=== PATIENT | male | born 1945 | race Hispanic/Latino ===

== ENCOUNTER 2017-09-21 12:56 | Inpatient (IN) | payer MEDICARE, OTHER ==
[~2017-09-21] VITALS: Ht 172.7 cm; Wt 52.4 kg
[~2017-09-21 12:56] MED LIST: ALBUTEROL0.63 MG/3 NEB; ALENDRONATE SOD35 MG PO; ATENOLOL25 MG PO; BACLOFEN20 MG PO; CELEBREX200 MG PO; CITALOPRAM HBR10 MG PO; CLARITIN10 M2 PO; CLOPIDOGREL75 MG PO; COMBIVENT RESPIM4 GM INH; CYCLOBENZAPRINE10 MG PO; DALIRESP500 MCG PO; FENOFIBRATE145 MG PO; FLOMAX0.4 MG PO; FLUCONAZOLE100 MG PO; HYDROCODON-ACE1 EAC5 PO; LEVAQUIN500 MG PO; LISINOPRIL20 MG PO; LUNESTA3 MG PO; MEDROL2 MG PO; MELOXICAM15 MG PO; METAXALONE800 MG PO; NEXIUM40 MG PO; NORVASC5 MG PO; OMEPRAZOLE20 M1 PO; OPANA ER10 MG PO; OPANA ER20 MG PO; PRAVACHOL40 MG PO; PROAIR HFA INH8.5 GM INH; SENNA LAX8.6 MG PO; SERTRALINE HCL50 MG PO; SPIRIVA18 MCG INH; SULFAMETHOXAZO1 EAC1 PO; SUMATRIPTAN SUC25 MG PO; SYMBICORT 16010.2 GM; TAMSULOSIN HCL0.4 MG PO; TESSALON PERLE100 MG PO; VESICARE5 MG PO; WARFARIN SODIUM3 MG PO
--- OUTSIDE RECORDS SUMMARY | 2017-09-21 13:00 | XMS REPORT | Clinical Summary ---
Author Author [facility] Organization [facility] Address Unknown Phone Unavailable Care Team Providers Care Sand Shoveler Name Role Phone Asked, Pcp PCP Unavailable Allergies Not on File Current Medications Not on file Active Problems Not on file Encounters Date Type Specialty Care Team Description 03/30/2017 Lab Lab Vital, Ever Polo MD 03/04/2017 Lab Lab Vital, Ever Polo MD after 09/20/2016 Social History Tobacco Use Types Packs/Day Years Used Date Never Assessed Sex Assigned at Date Recorded Not on file Last Filed Vital Signs Not on file Plan of Treatment Health Maintenance Due Date Last Done Comments COLONOSCOPY 08/15/1995 ZOSTER VACCINE 08/15/2005 PNEUMOCOCCAL 08/15/2010 POLYSACCHARIDE VACCINE AGE 65 AND OVER PNEUMOCOCCAL-13 08/15/2010 INFLUENZA VACCINE 03/09/2017 Results * Eye culture, anaerobic (03/30/2017 4:00 PM) Only the most recent of 2 results within the time period is included. Component Value Ref Range Eye culture isolate, Thioglycollate broth: anaerobic No anaerobes isolated after 7 days. Comment: Specimen Information Specimen Source: [facility]nea Specimen Site: Left Eye Specimen Performing Laboratory [facility] DEPARTMENT OF PATHOLOGY AND GENOMIC MEDICINE [address] [place] [id number] * Eye culture (03/30/2017 4:00 PM) Only the most recent of 2 results within the time period is included. Component Value Ref Range Eye culture isolate Blood and Chocolate agars and Thioglycollate broth: Blood agar: (A) Comment: Specimen Information Specimen Source: Cornea Specimen Site: Left Eye Eye culture isolate Staphylococcus, coagulase negative 1+ Growth first detected on Chocolate/Thioglycollate on day 2 Growth first detected on Blood agar on day 6 Interpretations of the MECCA values are based on serum and urine levels. Interpret results accordingly. Interpretations of the MECCA values are based on serum and urine levels. Interpret results accordingly. (A) Specimen Performing Laboratory Cor[facility] DEPARTMENT OF PATHOLOGY AND GENOMIC MEDICINE [address] [place] [id number] Organism Antibiotic Method Susceptibility Staphylococcus coagulase Ampicillin BP 0.38 mcg/mL negative Staphylococcus coagulase Erythromycin BP 1.0 mcg/mL: Resistant negative Staphylococcus coagulase Oxacillin BP 0.25 mcg/mL: Susceptible negative Staphylococcus coagulase Penicillin G BP 0.25 mcg/mL: Resistant negative Staphylococcus coagulase Vancomycin BP 1.5 mcg/mL: Susceptible negative Staphylococcus coagulase Azithromycin BP 6 mcg/mL: Resistant negative Staphylococcus coagulase Ciprofloxacin BP 0.19 mcg/mL: Susceptible negative Staphylococcus coagulase Ofloxacin BP 0.50 mcg/mL: Susceptible negative Staphylococcus coagulase Tobramycin BP 0.094 mcg/mL: Susceptible negative * Fungus culture (03/30/2017 4:00 PM) Only the most recent of 2 results within the time period is included. Component Value Ref Range Fungus culture isolate No growth after 4 weeks of incubation. Comment: Specimen Information Specimen Source: Cornea Specimen Site: Left Eye Specimen Performing Laboratory [facility] DEPARTMENT OF PATHOLOGY AND GENOMIC MEDICINE [address] [place] [phone] after 09/20/2016 Insurance Payer Benefit Subscriber ID Type Phone Address Plan / Group MEDICARE MEDICARE xxxxxxxxxx Medicare [place], [place] PART A AND B MEDICAID MEDICAID xxxxxxxxx Medicaid Home:
[2017-09-21] MEDS ORDERED: SODIUM CHLORIDE 0.9% 1000ML 1,000 ML IV STA (13:19)
[2017-09-21] MEDS ORDERED: ALBUTEROL SULF 0.083% NEB SOLN 3 ML NEB NEB ONE (14:00)
[2017-09-21] MEDS ORDERED: METHYLPREDNISOLONE SOD SUCC 125 MG/2ML VIAL IV ONE (14:00)
[2017-09-21] MEDS ORDERED: ALBUTEROL/IPRATROPIUM 3 ML NEB NEB ONE (14:00)
[2017-09-21] MEDS: IPRATROPIUM BROMIDE 0.02% 2.5 ML NEB NEB SCH ×2 (14:00→19:00)
[2017-09-21 14:02] LABS: BASOPHILS % 0.3 % (0.0-1.0); EOSINOPHILS % 0.6 % (0.0-6.0); HEMATOCRIT 43.1 % (38.2-49.6); HEMOGLOBIN 13.7 g/dL (14.0-18.0); LYMPHOCYTES # (AUTO) 1.3 (1.0-3.2); LYMPHOCYTES % 18.4 % (18.0-39.1); MEAN CORPUSCULAR HEMOGLOBIN 26.2 pg (28-32); MEAN CORPUSCULAR HGB CONC 31.8 g/dL (31-35); MEAN CORPUSCULAR VOLUME 82.4 fL (81-99); MONOCYTES # (AUTO) 0.3 (0.2-0.8); MONOCYTES % 4.1 % (4.4-11.3); NEUTROPHILS # (AUTO) 5.3 (2.1-6.9); NEUTROPHILS % 76.3 % (38.7-80.0); PLATELET COUNT 272 x10e3/uL (140-360); RED BLOOD COUNT 5.23 x10e6/uL (4.3-5.7); RED CELL DISTRIBUTION WIDTH 16.8 % (11.7-14.4)
[2017-09-21 14:05] LABS: ABG PCO2 34 mmHg (41-51); ABG PH 7.38 (7.31-7.41); ABG PO2 80 mmHg (80-105)
[2017-09-21 14:06] LABS: ABG HCO3 20 mmol/L (23-28)
[2017-09-21 14:11] LABS: INR 1.22; PROTHROMBIN TIME 14.5 seconds (11.9-14.5)
[2017-09-21 14:12] LABS: PARTIAL THROMBOPLASTIN TIME 31.6 seconds (23.8-35.5)
[2017-09-21 14:22] LABS: ALBUMIN 4.1 g/dL (3.5-5.0); ANION GAP 15.7 mmol/L (8-16); CALCIUM 9.2 mg/dL (8.4-10.2); CREATININE, SERUM 1.19 mg/dL (0.72-1.25); POTASSIUM 4.7 mmol/L (3.5-5.1)
[2017-09-21 14:28] LABS: CREATINE KINASE MB 9.9 ng/mL (0.00-5.00)
--- NOTE | 2017-09-21 15:24 | Diagnostic Imaging Report ---
PROCEDURE: A single AP view of the chest. COMPARISON: Patients [facility], , CHEST SINGLE (NOT PORTABLE), 01/17/2017, 16:21. INDICATIONS: SHORTNESS OF BREATH FINDINGS: Lines/tubes: None. Lungs: The lungs are hyperinflated, likely reflecting COPD. No consolidation or pulmonary edema. Pleura: Slight blunting of the right lateral costophrenic sulcus. Heart and mediastinum: Cardiac silhouette is unremarkable. Pulmonary vasculature is normal. Bones: No acute bony abnormality. IMPRESSION: 1. COPD changes. No consolidation. 2. Blunting of the right lateral costophrenic sulcus may reflect pleural thickening versus small volume pleural effusion. Kd Ma M.D. Dictated by: Kd Ma M.D. on 09/21/2017 at 15:34 Electronically approved by: Kd Ma M.D. on 09/21/2017 at 15:34
[2017-09-21 15:38] LABS: LYMPHOCYTES % (MANUAL) 18 % (19-48); MONOCYTES % (MANUAL) 2 % (3.4-9.0); NEUTROPHILS % (MANUAL) 80 % (40-74)
[2017-09-21 15:39] LABS: PLATELET ESTIMATE ADEQUATE; PLATELET MORPHOLOGY COMMENT FEW LARGE; RBC MORPHOLOGY COMMENT NORMAL
[2017-09-21] MEDS ORDERED: SODIUM CHLORIDE 0.9% 1000ML 1,000 ML IV SCH (17:01)
[2017-09-21] MEDS: ALBUTEROL SULF 0.083% NEB SOLN 3 ML NEB NEB SCH ×2 (17:11→19:00)
[2017-09-21] MEDS ORDERED: AZITHROMYCIN 500MG/SOD CHL 0.9% 250ML BAG IV SCH (17:15)
[2017-09-21] MEDS: NICOTINE 21 MG/EA PATCH TOP SCH (17:43)
[2017-09-21] MEDS: AZITHROMYCIN 500MG/NS 250 ML 250 ML IV SCH (17:44)
--- OUTSIDE RECORDS SUMMARY | 2017-09-21 18:03 | XMS REPORT | Clinical Summary ---
Author Author [facility] Organization [facility] Address Unknown Phone Unavailable Care Team Providers Care Ambulance Dispatcher Name Role Phone Asked, Pcp PCP Unavailable [...] Site: Left Eye Specimen Performing Laboratory [facility] DEPARTMENT OF PATHOLOGY AND GENOMIC MEDICINE [address] [place] [phone] * Eye culture (03/30/2017 4:00 PM) Only [...] results accordingly. (A) Specimen Performing Laboratory [facility] DEPARTMENT OF PATHOLOGY AND GENOMIC MEDICINE [address] [place] [phone] Organism Antibiotic Method Susceptibility Staphylococcus coagulase Ampicillin [...] Site: Left Eye Specimen Performing Laboratory [facility] DEPARTMENT OF PATHOLOGY AND GENOMIC MEDICINE [address] [place] [phone] after 09/20/2016 Insurance Payer Benefit Subscriber ID Type Phone Address Plan / Group MEDICARE MEDICARE xxxxxxxxxx Medicare [place], [place] PART A AND B MEDICAID MEDICAID xxxxxxxxx Medicaid Home:
--- OUTSIDE RECORDS SUMMARY | 2017-09-21 18:03 | XMS REPORT ---
Author Author [facility] Address Unknown Phone Unavailable Care Team Providers Care Physical Therapy Nurse Name Role Phone SUZAN GU Unavailable Unavailable Problems This patient has no known problems. Allergies, Adverse Reactions, Alerts This patient has no known allergies or adverse reactions. Medications This patient has no known medications. Results Test Description Test Time Test Comments Text Results Atomic Results Result Comments CHEST SINGLE (PORTABLE) [facility] [address] [place] [address] Patient Name: NITA PRATT MR #: [id number] : 1945 Age/Sex: 72/M Req #: [id number] Adm Physician: Ordered by: SUZAN GU MD Report #: [id number] Location: ER Room/Bed: Procedure: [id number] DX/CHEST SINGLE (PORTABLE) Exam Date: 09/21/17 Exam Time: 1400 REPORT STATUS: Signed PROCEDURE: A single AP view of the chest. COMPARISON: [facility], , CHEST SINGLE (NOT PORTABLE), 01/17/2017, 16:21. INDICATIONS: SHORTNESS OF BREATH FINDINGS: Lines/tubes: None. Lungs: The lungs are hyperinflated, likely reflecting COPD. No consolidation or pulmonary edema. Pleura: Slight blunting of the right lateral costophrenic sulcus. Heart and mediastinum: Cardiac silhouette is unremarkable. Pulmonary vasculature is normal. Bones: No acute bony abnormality. IMPRESSION: 1. COPD changes. No consolidation. 2. Blunting of the right lateral costophrenic sulcus may reflect pleural thickening versus small volume pleural effusion. Luci Pritchard M.D. Dictated by: Luci Pritchard M.D. on 09/21/2017 at 15:34 Electronically approved by: Luci Pritchard M.D. on 09/21/2017 at 15:34 Dictated By: LUCI PRITCHARD MD [id number] Transcribed By: DANUTA on 09/21/17 1534 COPY TO: SUZAN GU MD
[2017-09-21 18:41] VITALS: BP 147/75
--- NOTE | 2017-09-21 19:59 | Consultation ---
DATE OF CONSULTATION: September 21, 2017 PULMONARY MEDICINE CONSULTATION patient's algebra tutor, Dr. Benitez. REASON FOR REFERRAL: COPD exacerbation. HISTORY: Ms. Menendez is a pleasant 72-year-old gentleman with COPD exacerbation. Patient with worsening shortness of breath over 6 weeks he says. Slightly worse over the last week. He denies fever. Denies myalgias. Denies arthralgias. No new cough. There is some increased nasal congestion. Patient with condition improved with rest and worsened by movement. He is now walking about 2 rooms. Exercise tolerance at baseline. Prior pulmonary medicines include Advair 115 mcg inhaler, Combivent. Patient is on 3 L per minute of home oxygen. PAST MEDICAL HISTORY: COPD, long-term hypoxemia, chronic hypoxemia, hyperlipidemia, hypertension. MEDICATIONS: REVIEWED PER ELECTRONIC RECORD. ALLERGIES: IODINE AND CONTRAST ORAL AND IV DYE HE SAYS. SOCIAL HISTORY: No active alcohol, although he formerly drank heavily for 20 years. No drugs. Patient smoked from age 16 to active at 72, 1-1/2 packs a day. He denies any regular smoking of a pack a day. FAMILY HISTORY: Noncontributory. REVIEW OF SYSTEMS GENERAL: No weight change. OPHTHALMOLOGIC: No double vision. ENT: No dry mouth. ENDOCRINE: No thyroid disease. PULMONARY: No asthma. IMMUNOLOGIC: Denies allergies. CARDIAC: No heart attack. GI: No constipation. : No blood in the urine. MUSCULOSKELETAL: Arthritis. DERMATOLOGIC: No rashes. NEUROLOGIC: No seizures. PHYSICAL EXAMINATION VITALS: Afebrile. Vital signs noted per electronic record. GENERAL: In no acute distress. Alert and calm. HEENT: Normocephalic and atraumatic. NECK: Supple. Throat midline. LUNGS: Bilateral air entry is mild to moderate, decreased overall. Few rhonchi. No wheezes heard by me. CARDIOVASCULAR: S1 and S2. No murmurs, rubs or gallops. ABDOMEN: Soft and nontender. EXTREMITIES: No clubbing. No cyanosis. There is no edema. INTEGUMENT: No rash. No purpura. LABS: White count 7, hematocrit 43 and platelets 217,000. 7.38/34/80/20. Potassium 4.7, BUN 36, creatinine 1.2. CK is 194. Albumin is 4.1, globulin is 4.1. BNP is 22. Chest x-ray with mostly clear lungs. Possible mild scarring. IMPRESSION AND PLAN 1. Chronic obstructive pulmonary disease with exacerbation. 2. Suggestive recent upper respiratory infection. 3. Chronic respiratory failure, hypoxemic. 4. History of increasing debility and weakness. 5. Hypertension. 6. Hyperlipidemia. Continue home oxygen and continue oxygen while here in the hospital. Patient will continue on steroids that were already initiated. Bronchodilators. Smoking cessation highly recommended. Continue some IV fluids will be okay, although the patient does not seem that he is grossly volume depleted. No aggressive fluids will be given. Continue antibiotics. Thank you very much for this consult. Job#: [id number] AIDAN [facility]
[2017-09-21 20:00] VITALS: BP 131/58
[2017-09-22] VITALS: BP 142/71
[2017-09-22] MEDS: IPRATROPIUM BROMIDE 0.02% 2.5 ML NEB NEB SCH ×5 (00:10→20:25)
[2017-09-22] MEDS: METHYLPREDNISOLONE SOD SUCC 40 MG/ML VIAL IV SCH ×3 (00:20→17:00)
[2017-09-22] MEDS: ALBUTEROL SULF 0.083% NEB SOLN 3 ML NEB NEB SCH ×6 (00:30→22:00)
[2017-09-22 05:00] VITALS: BP 146/97
--- NOTE | 2017-09-22 06:03 | Diagnostic Imaging Report ---
CHEST SINGLE (PORTABLE), 09/22/2017 5:00 AM Technique: CHEST SINGLE (PORTABLE) Comparison: 01/17/2017 Clinical history: Pneumonia Findings: See Impression Impression: 1. Stable cardiomediastinal silhouette. 2. Hyperinflation without consolidation. 3. No effusion or pneumothorax. Signed by: Dr Francine Bear MD on 09/22/2017 6:00 AM
[2017-09-22 07:19] LABS: BASOPHILS % 0.2 % (0.0-1.0); HEMATOCRIT 37.2 % (38.2-49.6); HEMOGLOBIN 11.7 g/dL (14.0-18.0); LYMPHOCYTES # (AUTO) 0.6 (1.0-3.2); LYMPHOCYTES % 12.8 % (18.0-39.1); MEAN CORPUSCULAR HEMOGLOBIN 25.9 pg (28-32); MEAN CORPUSCULAR HGB CONC 31.5 g/dL (31-35); MEAN CORPUSCULAR VOLUME 82.3 fL (81-99); MONOCYTES # (AUTO) 0.1 (0.2-0.8); MONOCYTES % 1.3 % (4.4-11.3); NEUTROPHILS # (AUTO) 3.9 (2.1-6.9); NEUTROPHILS % 85.3 % (38.7-80.0); PLATELET COUNT 195 x10e3/uL (140-360); RED BLOOD COUNT 4.52 x10e6/uL (4.3-5.7); RED CELL DISTRIBUTION WIDTH 16.5 % (11.7-14.4)
[2017-09-22 07:46] LABS: ANION GAP 13.9 mmol/L (8-16); BLOOD UREA NITROGEN 19 mg/dL (7-26); BUN/CREATININE RATIO 24 (6-25); CALCIUM 8.6 mg/dL (8.4-10.2); CARBON DIOXIDE 20 mmol/L (22-29); CHLORIDE 107 mmol/L (98-107); CREATININE, SERUM 0.78 mg/dL (0.72-1.25); EST GLOMERULAR FILTRATION RATE > 60 ML/MIN (60-); GLUCOSE 127 mg/dL (74-118); POTASSIUM 4.9 mmol/L (3.5-5.1); SODIUM 136 mmol/L (136-145)
--- NOTE | 2017-09-22 07:55 | Consultation ---
DATE OF CONSULTATION: September 22, 2017 HISTORY: This is a 72-year-old who presented to the hospital because of problems with COPD exacerbation. He apparently complains of gagging all the time. He does have some abdominal discomfort and his workup so far reveal that his CBC was okay and his chemistry was also okay. His influenza is negative. OTHER MEDICAL PROBLEMS: Significant for COPD, history of chronic hypoxemia, hyperlipidemia, hypertension. ALLERGIES: IODINE AND ORAL CONTRAST. CURRENT MEDICATIONS: Include Atrovent, Solu-Medrol, azithromycin. SOCIAL HISTORY: No alcohol abuse. FAMILY HISTORY: Noncontributory. REVIEW OF SYSTEMS: At this point, denies any chest pain. Breathing is better. Denies any dysphagia or odynophagia. Denies any dysuria, hematuria or any kind of syncopal episode. PHYSICAL EXAMINATION GENERAL: The patient is awake, alert, appears to be stable and not in any acute distress at this point. VITAL SIGNS: Afebrile currently with stable vital signs. HEAD, EYES, EARS, NOSE, THROAT: Normocephalic, atraumatic. Sclerae anicteric. NECK: Supple. HEART: Sounds regular. LUNGS: Clear. ABDOMEN: Soft. There is mild epigastric tenderness. There is no rebound or mass. EXTREMITIES: No edema or clubbing. LAB VALUES: CBC is okay. Chemistry is okay. PT and INR are okay IMPRESSION 1. Chronic obstructive pulmonary disease exacerbation. 2. Abdominal pain. Patient has some problems with gagging. 3. History of chronic hypertension. RECOMMENDATIONS: Continue current care at this point. Will proceed with EGD for further evaluation tomorrow if it is okay with pulmonary. Job#: [id number] GE cc:DELMAR CANNON MD
[2017-09-22 08:15] VITALS: BP 153/72
[2017-09-22 11:48] VITALS: BP 155/67
--- NOTE | 2017-09-22 13:21 | History and Physical ---
HISTORY OF PRESENT ILLNESS: Patient came here with shortness of breath. He is feeling better today. He was found to have COPD exacerbation, and also he was found to have dysphagia. REVIEW OF SYSTEMS CARDIOVASCULAR: No chest pain or palpitations. RESPIRATORY: He did have shortness of breath. He is better right now. He also complains of cough. GASTROINTESTINAL: No nausea, no vomiting, no diarrhea. GENITOURINARY: No frequency, no dysuria. ALLERGIES: HE CLAIMS THAT HE IS ALLERGIC TO IODINE. SOCIAL HISTORY: He used to be a smoker. He does not smoke any more. He does not drink alcohol. PAST MEDICAL HISTORY: COPD, hypertension, peripheral vascular disease, hypercholesterolemia, benign prostatic hypertrophy and chronic pain syndrome. MEDICATION LIST: He is right now on albuterol and Atrovent, Zithromax, IV fluids, NicoDerm patch, budesonide, diuretic, prednisolone. PHYSICAL EXAMINATION VITALS: Blood pressure 155/67, temperature 97.4, heart rate 104 per minute. Respiratory rate is 16 per minute. Oxygen saturation 93%. HEART: Regular rhythm. Normal S1, S2 sounds. LUNGS: Decreased breath sounds bilaterally. No wheezing, no rhonchi, no crackles, no rales. ABDOMEN: Soft, nontender, nondistended, no visceromegaly. EXTREMITIES: No evidence of cyanosis, edema or trauma. NECK: No evidence of any thyromegaly or lymphadenopathy. LABORATORY DATA: On the blood work we have BMP with a sodium 136, potassium 4.9, chloride 107, CO2 20, BUN 19, creatinine 0.78, glucose 127. On the CBC, white blood count 4.62, hemoglobin 11.7, hematocrit 37.2, platelet count 185,000. PT 14.5. PTT 31.6. INR 1.22. AST 34, ALT 19, total bilirubin 0.7, alkaline phosphatase 85. Chest x-ray shows COPD. FINAL IMPRESSION 1. Chronic obstructive pulmonary disease exacerbation. 2. Uncontrolled hypertension. 3. Peripheral vascular disease. 4. Hypercholesterolemia. 5. Benign prostatic hypertrophy. 6. Chronic pain syndrome. 7. Nasal obstruction. PLAN OF TREATMENT: Going to consult Dr. Benitez for pulmonary, Dr. Amor for gastroenterology because of abdominal pain, and also Dr. Figueroa for ears, nose and throat because of complaining of occlusion on the nasal passages. The rest of the medications will be albuterol and Atrovent q.4 h., Zithromax 250 mg IV piggyback once a day, sodium chloride 75 mL an hour, NicoDerm patch 21 mg daily, budesonide 1 inhalation twice a day, methylprednisolone 40 mg IV twice a day. We are going to resume the home medications. Clonidine 0.1 mg q.4 h. as needed for hypertension. Job#: [id number]
[2017-09-22] MEDS ORDERED: IPRATROPIUM BROMIDE 0.02% 2.5 ML NEB NEB SCH (14:00)
[2017-09-22 16:04] VITALS: BP 132/68
[2017-09-22] MEDS: PANTOPRAZOLE SOD 40 MG TABEC PO SCH (17:00)
[2017-09-22] MEDS ORDERED: PANTOPRAZOLE SOD 40 MG TABEC PO SCH (17:00)
[2017-09-22] MEDS: NICOTINE 21 MG/EA PATCH TOP SCH (17:15)
[2017-09-22] MEDS: AZITHROMYCIN 500MG/NS 250 ML 250 ML IV SCH (17:30)
[2017-09-22] MEDS: BUDESONIDE/FORMOTEROL 160/4.5MCG INHALER INH SCH (19:00)
[2017-09-22 20:00] VITALS: BP 128/61
--- NOTE | 2017-09-22 20:08 | Consultation ---
DATE OF CONSULTATION: September 22, 2017 HISTORY OF PRESENT ILLNESS: I was kindly asked to see this pleasant 72-year-old man for evaluation of nasal congestion. The patient was admitted with an exacerbation of his COPD and reports a roughly 4-month history of nasal airway obstruction which alternates from side to side as well as excessive nasal drainage. He uses a humidifier with his home oxygen supply. He reports no seasonal variation with his symptoms. He reports no previous significant history of allergy or rhinosinusitis. He has not been treated for this condition. PAST MEDICAL HISTORY, PAST SURGICAL HISTORY AND HISTORY OF PRESENT ILLNESS: All reviewed in detail in the chart. PHYSICAL EXAMINATION HEENT: The tympanic membranes and external auditory canals were unremarkable. He had a mild S-shaped nasoseptal deviation. There was edema of the nasal mucosa. There was copious clear secretions and thick mucus within the nasal cavity. Pharyngeal examination was unremarkable. There was no palpable cervical adenopathy on fiberoptic diagnostic rhinoscopy. There was no active paranasal sinus pathology, but he had generalized mild edema as well as thick mucus throughout the nasal cavity. ASSESSMENT 1. Nasoseptal deviation. 2. Chronic allergic rhinosinusitis. PLAN: 1. Flonase 2 puffs each side of nose daily. 2. Nasal saline 2 puffs each side of nose q.4 h. while awake. 3. Ipratropium 0.06% 2 puffs each side of nose b.i.d. 4. Addition of humidification to nasal prong oxygen. Job#: [id number]
[2017-09-22] MEDS: SERTRALINE HCL 50 MG TAB PO SCH (20:54)
[2017-09-22] MEDS ORDERED: FENOFIBRATE 145 MG TAB PO SCH (21:00)
[2017-09-22] MEDS ORDERED: SIMVASTATIN 20 MG TAB PO SCH (21:00)
[2017-09-22] MEDS ORDERED: IPRATROPIUM BROMIDE 0.06% 42 MCG NASPR NS SCH (21:00)
[2017-09-22] MEDS: SALINE 0.65% NAS SOLN 1 SPRAY BTL SCH (22:00)
[2017-09-23] VITALS: BP 131/58
[2017-09-23] MEDS: IPRATROPIUM BROMIDE 0.02% 2.5 ML NEB NEB SCH ×6 (03:00→23:15)
[2017-09-23 04:00] VITALS: BP 120/57
[2017-09-23] MEDS: SALINE 0.65% NAS SOLN 1 SPRAY BTL SCH ×4 (05:27→22:00)
[2017-09-23] MEDS: ALBUTEROL SULF 0.083% NEB SOLN 3 ML NEB NEB SCH ×5 (06:00→23:15)
[2017-09-23] MEDS: BUDESONIDE/FORMOTEROL 160/4.5MCG INHALER INH SCH ×2 (07:00→19:25)
[2017-09-23] MEDS: TIOTROPIUM 18 MCG INH POWDER INH SCH (07:30)
[2017-09-23 07:52] VITALS: BP 142/65
[2017-09-23] MEDS: PANTOPRAZOLE SOD 40 MG TABEC PO SCH (08:00)
[2017-09-23] MEDS: FLUTICASONE PROPIONATE NASAL SPRAY NS SCH (09:00)
[2017-09-23] MEDS: AMLODIPINE BESYLATE 5 MG TAB PO SCH (09:00)
[2017-09-23] MEDS: TAMSULOSIN HCL 0.4 MG CAP PO SCH (09:00)
[2017-09-23] MEDS: METHYLPREDNISOLONE SOD SUCC 40 MG/ML VIAL IV SCH (09:00)
[2017-09-23 11:50] VITALS: BP 127/58
[2017-09-23 16:25] VITALS: BP 145/62
[2017-09-23] MEDS: NICOTINE 21 MG/EA PATCH TOP SCH (17:15)
[2017-09-23] MEDS: AZITHROMYCIN 500MG/NS 250 ML 250 ML IV SCH (17:30)
[2017-09-23] MEDS ORDERED: PROPOFOL IV EMULSION 10 MG/ML 20 ML VIAL ONE (18:14)
[2017-09-23] MEDS ORDERED: LIDOCAINE HCL 2% LOCAL INJ 5 ML SDV VIAL INJ ONE (18:14)
[2017-09-23 20:00] VITALS: BP 136/58
[2017-09-23] MEDS: SERTRALINE HCL 50 MG TAB PO SCH (20:31)
[2017-09-23] MEDS: SUCRALFATE 1 GM TAB PO SCH (20:31)
--- NOTE | 2017-09-23 21:21 | Discharge Summary ---
This 72-year-old male with a past medical history positive for COPD, history of coronary artery disease, hypertension and chronic pain syndrome came here complaining of shortness of breath. He was found to have COPD exacerbation. He is doing a lot better right now. Patient is going to be discharged home tomorrow. He was also having difficulty swallowing. He was seen by Dr. Amor of gastroenterology who did an upper endoscopy. He found a hiatal hernia, acute gastric ulcer, and normal small-bowel examination. Dr. Benitez saw him from the pulmonary point of view. He was started on albuterol and Atrovent, Spiriva, IV Solu-Medrol and Zithromax. From a respiratory point of view, he is feeling much better. He is able to swallow without a problem anyway. He is going home tomorrow if okay with the consultants. Dr. Manuel Figueroa saw him from the ears, nose and throat specialist point of view because the patient has trouble breathing through his nose. He is supposed to follow up with him in the clinic. PHYSICAL EXAM: The heart shows regular rhythm. Normal S1 and S2 sounds. Lungs are clear bilaterally. Abdomen is soft. Extremities show no evidence of cyanosis, edema or trauma. Blood pressure 127/58, temperature 98.2, heart rate 114 per minute, respiratory rate 20 per minute, oxygen saturation 96%. LABS: On the BMP, sodium is 133, potassium 4.9, chloride 107, CO2 20, BUN 19, creatinine 0.78, glucose 127. On the CBC, white blood count 4.62, hemoglobin 11.7, hematocrit 37.2, platelet count 185,000. PT 14.5, INR 1.22, PTT 31.6. AST 34, ALT 19, total bilirubin 0.7, alkaline phosphatase of 85. FINAL IMPRESSION 1. Chronic obstructive pulmonary disease exacerbation secondary to acute bronchitis. 2. Gastric ulcer with no evidence of bleeding. 3. Chronic pain syndrome. 4. Depression. PLAN OF TREATMENT: The patient is going to be discharged home on: 1. Protonix 40 mg twice a day. 2. Carafate 1 g before meals. 3. He is going to continue albuterol q.4 h. as needed for shortness of breath. 4. Pulmicort 1 inhalation twice a day. 5. Medrol Dosepak to take as directed. 6. Spiriva 1 inhalation daily. 7. Flomax 0.4 mg daily. 8. Flonase 2 inhalations daily. 9. NicoDerm patch 21 mg q.24 h. and follow instructions on the nicotine pack. He is to follow up with me in a week. Follow up with Dr. Manuel Figueroa in a week. Follow up with Dr. Amor for endoscopy in 3 months. DELMAR CANNON MD Job#: [id number]
[2017-09-24] VITALS: BP 156/67
[2017-09-24] MEDS: IPRATROPIUM BROMIDE 0.02% 2.5 ML NEB NEB SCH ×2 (02:30→07:28)
[2017-09-24] MEDS ORDERED: ACETAMINOPHEN 325 MG TAB PO PRN (03:00)
[2017-09-24 05:05] VITALS: BP 142/72
[2017-09-24] MEDS: SALINE 0.65% NAS SOLN 1 SPRAY BTL SCH (05:50)
[2017-09-24] MEDS: ALBUTEROL SULF 0.083% NEB SOLN 3 ML NEB NEB SCH (07:28)
[2017-09-24] MEDS: TIOTROPIUM 18 MCG INH POWDER INH SCH (07:28)
[2017-09-24] MEDS: BUDESONIDE/FORMOTEROL 160/4.5MCG INHALER INH SCH (07:28)
[2017-09-24] MEDS: SUCRALFATE 1 GM TAB PO SCH (07:30)
[2017-09-24] MEDS: PANTOPRAZOLE SOD 40 MG TABEC PO SCH (08:00)
[2017-09-24 08:48] VITALS: BP 163/71
[2017-09-24] MEDS: METHYLPREDNISOLONE SOD SUCC 40 MG/ML VIAL IV SCH (09:00)
[2017-09-24] MEDS: FLUTICASONE PROPIONATE NASAL SPRAY NS SCH (09:00)
[2017-09-24] MEDS: TAMSULOSIN HCL 0.4 MG CAP PO SCH (09:17)
[2017-09-24] MEDS: AMLODIPINE BESYLATE 5 MG TAB PO SCH (09:17)
[2017-09-24] MEDS ORDERED: SUCRALFATE1 GM PO (10:18)
[2017-09-24] MEDS ORDERED: PULMICORT2 ML INH (10:21)
[2017-09-24] MEDS ORDERED: PANTOPRAZOLE SO40 MG PO (10:21)
--- NOTE | 2017-09-24 14:43 | Discharge Summary ---
This is a 72-year-old male with a past medical history positive for severe COPD, history of coronary artery disease, hypertension and chronic pain syndrome. He came to the hospital complaining of shortness of breath. Chest x-ray showed no evidence of any pneumonia or CHF. He has COPD. Patient was started on albuterol and Atrovent and IV antibiotics. He was started on IV Solu-Medrol. He was started on Spiriva. He was started on Pulmicort. Also, he was complaining of difficulty swallowing. He had an EGD done which showed gastric ulcers. More specifically, hiatal hernia and a normal bowel examination and gastric ulcer. EGD with biopsy was done. Also he was complaining also of clogged nostril, so he was seen by Dr. Manuel Figueroa, education research analyst, who put the patient on Flonase. Patient is doing better, back to baseline. He is going home today. PHYSICAL EXAMINATION: Heart shows regular rhythm. Normal S1, S2 sounds. Lungs are clear bilaterally. Abdomen is soft. Extremities show no evidence of cyanosis, edema or trauma. Blood pressure 142/72, temperature 97.8, heart rate 108 minute, respiratory rate is 18 per minute, oxygen saturation 96%. LABS: On the BMP, sodium 136, potassium 4.9, chloride 107, CO2 20, BUN 19, creatinine 0.78, glucose 127. On the CBC, white blood count 4.62, hemoglobin 11.7, hematocrit 37.2, platelet count 185,000. PT 14.5, INR 1.22, PTT 31.6. AST 34, ALT 19, total bilirubin 0.7, alkaline phosphatase 85. FINAL IMPRESSION 1. Chronic obstructive pulmonary disease exacerbation. 2. Gastric ulcers. 3. Chronic pain syndrome. 4. Acute bronchitis. PLAN OF TREATMENT: He is going to be discharged on the same medications that I dictated yesterday on the prior discharge summary. Follow up with myself in a week, Dr. Amor and Dr. Figueroa in a week also. We are going to order home health for PT and OT. We are going to continue oxygen at home. DELMAR CANNON MD Job#: [id number] MH
[2017-09-25] MEDS ORDERED: PREDNISONE 20 MG TAB PO SCH (09:00)
== END 2017-09-24 10:50 | disposition home health service (06) | DRG 191 ==
LOC: ER 12:56 → MED/SURG 18:00 → MED/SURG3 09-22 05:16 → OBSVTOIN 09-22 12:22
PROVIDERS: ADMIT Internal Medicine; ATTEND Internal Medicine
PROC: 0DB38ZX Excision of Lower Esophagus, Via Natural or Artificial Opening Endoscopic, Diagnostic (ICD-10-PCS; 2017-09-23)
PROC: 0DB68ZX Excision of Stomach, Via Natural or Artificial Opening Endoscopic, Diagnostic (ICD-10-PCS; principal; 2017-09-23 13:30)
DX: J44.0 Chronic obstructive pulmonary disease with (acute) lower respiratory infection (principal); J96.11 Chronic respiratory failure with hypoxia; J20.9 Acute bronchitis, unspecified; J44.1 Chronic obstructive pulmonary disease with (acute) exacerbation; G89.4 Chronic pain syndrome; I25.10 Atherosclerotic heart disease of native coronary artery without angina pectoris; K25.9 Gastric ulcer, unspecified as acute or chronic, without hemorrhage or perforation; K44.9 Diaphragmatic hernia without obstruction or gangrene; J32.9 Chronic sinusitis, unspecified; J34.2 Deviated nasal septum; I10 Essential (primary) hypertension; R53.81 Other malaise; F32.9 Major depressive disorder, single episode, unspecified; I73.9 Peripheral vascular disease, unspecified; N40.0 Benign prostatic hyperplasia without lower urinary tract symptoms; J34.89 Other specified disorders of nose and nasal sinuses
CPT/HCPCS: 36415; 36600; 43239; 71045; 80048; 80053; 82550; 82553; 82805; 83880; 84484; 85025; 85610; 85730; 87040; 87400; 88305; 88312; 93005; 94640; 99284; G0378; J0456; J2001; J2920; J2930; J7030

== ENCOUNTER 2018-10-15 10:00 | Inpatient (IN) | payer MEDICARE, OTHER ==
[~2018-10-15] VITALS: Ht 172.7 cm; Wt 60.1 kg
[~2018-10-15 10:00] MED LIST changes: +PANTOPRAZOLE SO40 MG PO; +PULMICORT2 ML INH; +SUCRALFATE1 GM PO
--- OUTSIDE RECORDS SUMMARY | 2018-10-15 10:03 | XMS REPORT | Clinical Summary ---
Author Author [facility] Organization [facility] Address Unknown Phone Unavailable Care Team Providers Care Outpatient Physical Therapist Name Role Phone Asked, No Pcp PCP Unavailable Allergies Not on File Medications Not on file Active Problems Not on file Social History Date Tobacco Use Types Packs/Day Years Used Never Assessed Sex Assigned at Date Recorded Not on file Industry Job Start Date Occupation Not on file Not on file Not on file Travel End Travel History Travel Start No recent travel history available. Last Filed Vital Signs Not on file Plan of Treatment Health Maintenance Due Date Last Done Comments COLON CANCER SCREENING 08/15/1995 SHINGLES VACCINES (#1) 08/15/1995 65+ PNEUMOCOCCAL VACCINE 08/15/2010 (1 of 2 - PCV13) PNEUMOCOCCAL 08/15/2010 POLYSACCHARIDE VACCINE AGE 65 AND OVER INFLUENZA VACCINE 03/09/2018 Results Not on fileafter 10/14/2017 Insurance Payer Benefit Subscriber ID Type Phone Address Plan / Group MEDICARE MEDICARE xxxxxxxxxx Medicare [place], [place] PART A AND B MEDICAID MEDICAID xxxxxxxxx Medicaid amily (Home) [place] [address] Advance Directives Patient has advance care planning documents on file. For more information, evelia eduardo contact: Alan Odell [address] [place] [address]
[2018-10-15] MEDS ORDERED: SODIUM CHLORIDE 0.9% 1000ML 1,000 ML IV STA (10:24)
[2018-10-15] MEDS ORDERED: METHYLPREDNISOLONE SOD SUCC 125 MG/2ML VIAL IV NR (10:24)
[2018-10-15] MEDS ORDERED: LEVALBUTEROL HCL SOLN NEBU 1.25 MG/3 ML NEB INH ONE (10:30)
[2018-10-15] MEDS ORDERED: IPRATROPIUM BROMIDE 0.02% 2.5 ML NEB NEB NR (10:30)
[2018-10-15 10:39] LABS: BASOPHILS % 0.2 % (0.0-1.0); HEMATOCRIT 40.8 % (38.2-49.6); HEMOGLOBIN 12.4 g/dL (14.0-18.0); LYMPHOCYTES # (AUTO) 0.4 (1.0-3.2); LYMPHOCYTES % 6.3 % (18.0-39.1); MEAN CORPUSCULAR HGB CONC 30.4 g/dL (31-35); MEAN CORPUSCULAR VOLUME 85.5 fL (81-99); MONOCYTES # (AUTO) 0.4 (0.2-0.8); MONOCYTES % 6.8 % (4.4-11.3); NEUTROPHILS # (AUTO) 5.6 (2.1-6.9); NEUTROPHILS % 85.9 % (38.7-80.0); PLATELET COUNT 191 x10e3/uL (140-360); RED BLOOD COUNT 4.77 x10e6/uL (4.3-5.7); RED CELL DISTRIBUTION WIDTH 15.9 % (11.7-14.4)
[2018-10-15 10:45] LABS: INR 1.08; PROTHROMBIN TIME 14.5 seconds (11.9-14.5)
[2018-10-15 10:46] LABS: PARTIAL THROMBOPLASTIN TIME 37.8 seconds (23.8-35.5)
[2018-10-15 10:53] LABS: ALANINE AMINOTRANSFERASE 11 IU/L (0-55); ALBUMIN 3.4 g/dL (3.5-5.0); ALBUMIN/GLOBULIN RATIO 0.8 (0.8-2.0); ALKALINE PHOSPHATASE 98 IU/L (40-150); ANION GAP 16.1 mmol/L (8-16); BLOOD UREA NITROGEN 11 mg/dL (7-26); BUN/CREATININE RATIO 13 (6-25); CALCIUM 9.2 mg/dL (8.4-10.2); CARBON DIOXIDE 27 mmol/L (22-29); CHLORIDE 99 mmol/L (98-107); CREATINE KINASE 351 IU/L (30-200); CREATININE, SERUM 0.82 mg/dL (0.72-1.25); EST GLOMERULAR FILTRATION RATE > 60 ML/MIN (60-); GLUCOSE 112 mg/dL (74-118); POTASSIUM 4.1 mmol/L (3.5-5.1); SODIUM 138 mmol/L (136-145)
--- NOTE | 2018-10-15 11:30 | NUR ---
PT REFUSED TO GIVE UA.
[2018-10-15 11:46] LABS: B-TYPE NATRIURETIC PEPTIDE2 204.5 pg/mL (0-100)
--- NOTE | 2018-10-15 12:00 | NUR ---
LAB REPORTED + SWETA Hair MD NOTIFIED OF TEST RESULTS.
[2018-10-15] MEDS ORDERED: ACETAMINOPHEN 1000 MG/100 ML IV PRN (12:15)
[2018-10-15] MEDS ORDERED: ACETAMINOPHEN 1000 MG/100 ML IV NR (12:15)
[2018-10-15] MEDS ORDERED: VANCOMYCIN 1GM/NS 250 ML 250 ML IV SCH (12:30)
--- NOTE | 2018-10-15 13:03 | Diagnostic Imaging Report ---
EXAMINATION: CHEST SINGLE (PORTABLE) COMPARISON: Chest x-ray 09/22/2017 INDICATION: ^COUGH SOB ^[id number] ^[id number] DISCUSSION: Frontal view of the chest obtained at 1142 hours. The image is motion degraded. The patient is rotated. HEART AND MEDIASTINUM: Heart and mediastinal silhouette is grossly normal LINES: None. LUNGS: The lungs are diffusely hyperinflated. No pneumonia or pulmonary edema. PLEURA: No pleural effusion or pneumothorax. BONES AND SOFT TISSUES: No focal osseous lesion. The soft tissues are normal. IMPRESSION: Compromised exam due to patient rotation and motion artifact. Pulmonary hyperinflation suggestive of COPD. No new cardiopulmonary findings. Signed by: Dr. Manuel Brandon MD on 10/15/2018 12:59 PM
[2018-10-15] MEDS: LEVOFLOXACIN 500MG/D5W 100ML 100 ML IV SCH (13:18)
[2018-10-15] MEDS: OSELTAMIVIR PHOSPHATE 75 MG CAP PO SCH ×2 (13:20→17:18)
[2018-10-15] MEDS ORDERED: ONDANSETRON HCL INJ 2MG/ML 2ML 2 MG/ML VIAL IV PRN (14:00)
[2018-10-15] MEDS ORDERED: NITROGLYCERIN 0.4 MG SUBL SL PRN (14:00)
--- OUTSIDE RECORDS SUMMARY | 2018-10-15 14:09 | XMS REPORT | Clinical Summary ---
Author Author [facility] Organization [facility] Address Unknown Phone Unavailable Care Team Providers Care Precision Honer Name Role Phone Asked, No Pcp PCP [...] Plan / Group MEDICARE MEDICARE xxxxxxxxxx Medicare [place], [place] PART A AND B MEDICAID MEDICAID xxxxxxxxx Medicaid amily (Home) [place] [address] Advance Directives Patient has advance care planning documents on file. For more information, evelia eduardo contact: Alan Odell [address] [place] [address]
[2018-10-15] MEDS ORDERED: MORPHINE SULFATE INJ 4 MG/ML INJ 1ML IV PRN (14:15)
[2018-10-15] MEDS: FAMOTIDINE 20 MG/2 ML VIAL IV SCH (14:34)
[2018-10-15] MEDS: SODIUM CHLORIDE 0.9% 1000ML 1,000 ML IV SCH (14:34)
[2018-10-15] MEDS: CEFEPIME 2 GM/NS 0.9% 100 ML 100 ML IV SCH ×2 (14:34→22:00)
[2018-10-15 14:51] LABS: BAND NEUTROPHILS % (MANUAL) 3 %; LYMPHOCYTES % (MANUAL) 6 % (19-48); MONOCYTES % (MANUAL) 5 % (3.4-9.0); NEUTROPHILS % (MANUAL) 86 % (40-74)
[2018-10-15 14:52] LABS: PLATELET ESTIMATE ADEQUATE; PLATELET MORPHOLOGY COMMENT NORMAL; RBC MORPHOLOGY COMMENT NORMAL
[2018-10-15] MEDS: IPRATROPIUM BROMIDE 0.02% 2.5 ML NEB NEB SCH ×3 (15:50→23:00)
[2018-10-15] MEDS: LEVALBUTEROL HCL SOLN NEBU 0.63 MG/3 ML NEB INH SCH ×3 (15:50→23:00)
[2018-10-15 17:00] VITALS: BP 160/74
[2018-10-15] MEDS: VANCOMYCIN 1GM/NS 250 ML 250 ML IV SCH (17:18)
[2018-10-15] MEDS: BUDESONIDE 0.25 MG/2 ML NEB INH SCH (19:40)
[2018-10-15 20:00] VITALS: BP 124/69
[2018-10-15] MEDS: SERTRALINE HCL 50 MG TAB PO SCH (21:11)
[2018-10-15] MEDS: FENOFIBRATE 145 MG TAB PO SCH (21:11)
[2018-10-15] MEDS: PANTOPRAZOLE SOD 40 MG TABEC PO SCH (21:11)
[2018-10-15] MEDS: SIMVASTATIN 20 MG TAB PO SCH (21:11)
[2018-10-16] MEDS: LEVALBUTEROL HCL SOLN NEBU 0.63 MG/3 ML NEB INH SCH ×5 (00:15→20:30)
[2018-10-16] MEDS: IPRATROPIUM BROMIDE 0.02% 2.5 ML NEB NEB SCH ×5 (00:15→20:30)
[2018-10-16] MEDS: FAMOTIDINE 20 MG/2 ML VIAL IV SCH ×2 (01:30→14:13)
[2018-10-16 04:23] VITALS: BP 123/58
[2018-10-16] MEDS ORDERED: SODIUM CHLORIDE 0.9% 250ML 250 ML ONE (04:32)
[2018-10-16] MEDS: VANCOMYCIN 1GM/NS 250 ML 250 ML IV SCH ×2 (05:04→18:45)
[2018-10-16 05:07] LABS: BASOPHILS % 0.2 % (0.0-1.0); HEMATOCRIT 35.6 % (38.2-49.6); LYMPHOCYTES # (AUTO) 0.3 (1.0-3.2); LYMPHOCYTES % 4.2 % (18.0-39.1); MEAN CORPUSCULAR HEMOGLOBIN 26.2 pg (28-32); MEAN CORPUSCULAR HGB CONC 30.9 g/dL (31-35); MEAN CORPUSCULAR VOLUME 84.8 fL (81-99); MONOCYTES # (AUTO) 0.3 (0.2-0.8); MONOCYTES % 4.5 % (4.4-11.3); NEUTROPHILS # (AUTO) 5.9 (2.1-6.9); PLATELET COUNT 165 x10e3/uL (140-360); RED CELL DISTRIBUTION WIDTH 15.7 % (11.7-14.4)
[2018-10-16 05:29] LABS: ALANINE AMINOTRANSFERASE 14 IU/L (0-55); ALBUMIN 2.8 g/dL (3.5-5.0); ALBUMIN/GLOBULIN RATIO 0.8 (0.8-2.0); ALKALINE PHOSPHATASE 78 IU/L (40-150); ANION GAP 11.1 mmol/L (8-16); BLOOD UREA NITROGEN 14 mg/dL (7-26); BUN/CREATININE RATIO 20 (6-25); CALCIUM 8.4 mg/dL (8.4-10.2); CARBON DIOXIDE 25 mmol/L (22-29); CHLORIDE 101 mmol/L (98-107); CHOLESTEROL 102 MD/DL (0-199); CREATININE, SERUM 0.71 mg/dL (0.72-1.25); EST GLOMERULAR FILTRATION RATE > 60 ML/MIN (60-); GLUCOSE 105 mg/dL (74-118); HDL CHOLESTEROL 51 MG/DL (40-60); LDL CHOLESTEROL 40 MG/DL (60-130); POTASSIUM 4.1 mmol/L (3.5-5.1); SODIUM 133 mmol/L (136-145); TRIGLYCERIDES 54 MG/DL (0-149)
[2018-10-16] MEDS: CEFEPIME 2 GM/NS 0.9% 100 ML 100 ML IV SCH ×3 (06:00→22:45)
[2018-10-16] MEDS: BUDESONIDE 0.25 MG/2 ML NEB INH SCH ×2 (07:00→20:55)
--- NOTE | 2018-10-16 07:00 | NUR ---
RECEIVED BEDSIDE SHIFT REPORT FROM NIGHT RN. PT DENIES NEEDS AT THIS TIME.
[2018-10-16 07:12] LABS: CREATINE KINASE MB 5.3 ng/mL (0-5.0)
[2018-10-16 08:02] LABS: LYMPHOCYTES % (MANUAL) 5 % (19-48); MONOCYTES % (MANUAL) 3 % (3.4-9.0); NEUTROPHILS % (MANUAL) 92 % (40-74); PLATELET ESTIMATE ADEQUATE; PLATELET MORPHOLOGY COMMENT NORMAL; RBC MORPHOLOGY COMMENT NORMAL
[2018-10-16 08:49] LABS: COLOR,URINE YELLOW (YELLOW)
[2018-10-16 08:50] LABS: BILIRUBIN,URINE NEGATIVE (NEGATIVE); CLARITY,URINE HAZY (CLEAR); KETONES,URINE 1+ (NEGATIVE); LEUKOCYTE ESTERASE ,URINE NEGATIVE (NEGATIVE); NITRITE,URINE NEGATIVE (NEGATIVE); PROTEIN,URINE DIPSTICK TRACE (NEGATIVE); URINE UROBILINOGEN 0.2 mg/dL (0.2 - 1)
[2018-10-16 08:51] LABS: BACTERIA,URINE FEW /HPF; EPITHELIAL CELLS,URINE FEW /LPF; RBC,URINE 0-5 /HPF (0-5); WBC,URINE (MAN) 0-5 /HPF (0-5)
[2018-10-16 09:00] VITALS: BP 123/58
[2018-10-16] MEDS ORDERED: PANTOPRAZOLE SOD 40 MG TABEC PO SCH (09:00)
[2018-10-16] MEDS ORDERED: IPRATROPIUM/ALBUTEROL SULFATE 4 GM INH INH SCH (09:00)
[2018-10-16] MEDS: SUCRALFATE 1 GM TAB PO SCH ×3 (09:26→18:45)
[2018-10-16] MEDS: LEVOFLOXACIN 500MG/D5W 100ML 100 ML IV SCH (09:26)
[2018-10-16] MEDS: SODIUM CHLORIDE 0.9% 1000ML 1,000 ML IV SCH ×2 (09:27)
[2018-10-16] MEDS: ASPIRIN 81 MG ENTERIC COATED PO SCH (09:27)
[2018-10-16] MEDS: TAMSULOSIN HCL 0.4 MG CAP PO SCH (09:27)
[2018-10-16] MEDS: OSELTAMIVIR PHOSPHATE 75 MG CAP PO SCH ×2 (09:27→18:45)
[2018-10-16] MEDS: PANTOPRAZOLE SOD 40 MG TABEC PO SCH ×2 (09:27→21:07)
[2018-10-16 09:34] VITALS: BP 122/62
[2018-10-16 13:17] VITALS: BP 132/66
--- NOTE | 2018-10-16 15:10 | NUR ---
Visit made by the Spiritual Care Department Pastoral Visitor, Tim Santiago. PV provided pastoral presence, hospitality, and supportive listening. Pastoral Visitor informed pt/family of the scope of [employer] and availability. BERTA CAMACHO Wastewater Design Engineer Spiritual Care Department O: [phone] Pager: [phone] ([phone] number calling from)
[2018-10-16 17:04] VITALS: BP 113/56
[2018-10-16] MEDS: ASPIRIN 81 MG CHEW TAB PO SCH (18:45)
[2018-10-16 19:45] VITALS: BP 142/95
[2018-10-16] MEDS: SALMETEROL/FLUTICASONE 250/50 INH SCH (20:28)
[2018-10-16] MEDS: HEPARIN SOD (PORCINE) 5,000 UNIT/ML VIAL SC SCH (21:05)
[2018-10-16] MEDS: FENOFIBRATE 145 MG TAB PO SCH (21:07)
[2018-10-16] MEDS: SIMVASTATIN 20 MG TAB PO SCH (21:07)
[2018-10-16] MEDS: SERTRALINE HCL 50 MG TAB PO SCH (21:07)
[2018-10-16] MEDS: METHYLPREDNISOLONE SOD SUCC 40 MG/ML VIAL 1ML IV SCH (21:07)
[2018-10-16] MEDS: ACETYLCYSTEINE 200 MG/ML 4ML VIAL INH SCH (21:45)
[2018-10-17] VITALS (7 sets, daily range): BP systolic 125–166; BP diastolic 66–81
[2018-10-17] MEDS: FAMOTIDINE 20 MG/2 ML VIAL IV SCH ×2 (01:26→14:30)
--- NOTE | 2018-10-17 03:21 | Consultation ---
DATE OF CONSULTATION: Pulmonary Consultation Patient of Dr. Owens. HISTORY OF PRESENT ILLNESS: Davie 73-year-old gentleman, well-known to the Pulmonary Service with end-stage COPD. Last FEV1 recorded was approximately 25% of predicted. Admitted with influenza despite the flu vaccine, which he had in May of last year. History of COPD on home oxygen, hypertension, peripheral vascular disease, calcaneal gait, affecting the left eye with partial surgical closure of the eye, hypertension, and peripheral vascular disease. ALLERGIES: ALLERGIC TO IODINE. MEDICATIONS: Included Advair, albuterol, alendronate, Astelin, Lipitor, Combivent, Neurontin, Carafate, montelukast, Spiriva, and Flomax. PAST SURGICAL HISTORY: Had back surgery, gallbladder surgery, neck surgery. SOCIAL HISTORY: Worked as a cole. PHYSICAL EXAMINATION: GENERAL: He is a well-developed white male lying on his side. VITAL SIGNS: T-max 100.6 on admission on the . Temperature now 98.6, pulse 96, respirations 18, and blood pressure 113/56. HEENT: Head, normocephalic, atraumatic. Ptosis of left eye, surgical partial closure. LUNGS: Diminished breath sounds bilaterally. HEART: Regular rhythm. ABDOMEN: Nontender. EXTREMITIES: Nontender. ASSESSMENT AND PLAN: The patient requests mucolytic. Continue bronchodilators corticosteroids. Reduce antibiotics if chest x-ray remains clear. The patient remains afebrile. The patient has a history of severe peripheral vascular disease. He has had angioplasty and stent to save his foot. Thank you for this kind referral. MD ELEN Royal/GAGEL /[id number]
[2018-10-17] MEDS: IPRATROPIUM BROMIDE 0.02% 2.5 ML NEB NEB SCH ×6 (04:00→23:10)
[2018-10-17] MEDS: LEVALBUTEROL HCL SOLN NEBU 0.63 MG/3 ML NEB INH SCH ×6 (04:00→23:10)
[2018-10-17] MEDS: CEFEPIME 2 GM/NS 0.9% 100 ML 100 ML IV SCH ×3 (05:30→21:59)
[2018-10-17] MEDS: ACETYLCYSTEINE 200 MG/ML 4ML VIAL INH SCH ×2 (06:39→19:12)
[2018-10-17] MEDS: BUDESONIDE 0.25 MG/2 ML NEB INH SCH ×2 (06:39→19:12)
--- NOTE | 2018-10-17 06:40 | NUR ---
vanc trough results received, Peter Godoy (television camera operator for Dr. Owens) paged and message left with answering service
[2018-10-17] MEDS: SALMETEROL/FLUTICASONE 250/50 INH SCH ×2 (07:00→19:12)
--- NOTE | 2018-10-17 07:48 | NUR ---
supervisor long goods for . Aware of vancomycin trough results. See orders
[2018-10-17] MEDS: HEPARIN SOD (PORCINE) 5,000 UNIT/ML VIAL SC SCH ×2 (09:00→21:42)
[2018-10-17] MEDS: SUCRALFATE 1 GM TAB PO SCH ×3 (09:13→17:27)
[2018-10-17] MEDS: LEVOFLOXACIN 500MG/D5W 100ML 100 ML IV SCH (09:13)
[2018-10-17] MEDS: METHYLPREDNISOLONE SOD SUCC 40 MG/ML VIAL 1ML IV SCH ×2 (09:13→21:40)
[2018-10-17] MEDS: PANTOPRAZOLE SOD 40 MG TABEC PO SCH ×2 (09:14→21:40)
[2018-10-17] MEDS: OSELTAMIVIR PHOSPHATE 75 MG CAP PO SCH ×2 (09:14→17:27)
[2018-10-17] MEDS: ASPIRIN 81 MG CHEW TAB PO SCH (09:14)
[2018-10-17] MEDS: ASPIRIN 81 MG ENTERIC COATED PO SCH (09:14)
[2018-10-17] MEDS: TAMSULOSIN HCL 0.4 MG CAP PO SCH (09:14)
--- NOTE | 2018-10-17 14:19 | Progress Note ---
DATE: 10/17/2018 SUBJECTIVE: Mr. Menendez is a 73-year-old man with a history of end-stage COPD, hypertension, peripheral vascular disease, who came to the emergency room complaining of cough and fatigue. He was positive for influenza. He had COPD exacerbation. He has been seen by Dr. Benitez. PHYSICAL EXAMINATION: GENERAL: Today, he is awake and alert. He states he is feeling better. VITAL SIGNS: Temperature is 99.1, blood pressure 149/66, respiratory rate is 20, and O2 saturation 98%. HEART: Regular rate. LUNGS: Decreased breath sounds bilaterally. ABDOMEN: Soft. LABORATORY DATA: On the blood work, white count 6.49, hemoglobin 11, and hematocrit 35.6. Potassium 4.1, creatinine 0.71, glucose 105, troponin negative, vancomycin 17. He was positive for influenza A. Urine negative, 0 to 5 white blood cells. Blood cultures so far negative. Urine culture is pending. A chest x-ray shows compromised exam due to patient rotation, pulmonary hyperinflation/COPD. ASSESSMENT: 1. Positive influenza A. 2. Chronic obstructive pulmonary disease exacerbation. 3. Rule out pneumonia. 4. Hypertension. 5. Peripheral artery disease. PLAN: Plan at present time is to continue aspirin. Continue IV steroids, IV antibiotics. Continue neb treatments. DVT and ulcer prophylaxis. All this was discussed with the patient. All questions were answered to satisfaction. The prognosis remains guarded. MD DARRON Perez/GABY /[id number]
--- NOTE | 2018-10-17 16:24 | NUR ---
Nutrition Screen Note RD Recommendation for Physician: - Continue Cardiac diet as tolerated - Recommend Ensure Compact TID Plan of Care: RD following, monitoring for tolerance and adequacy Nutrition reason for involvement: Nutrition Risk Trigger- MST Primary Diagnose(s): COPD exacerbation, dyspnea, fatigue, influenza A PMH: COPD, HTN, PVD RD Assessment: 10/17: 73 YOM admitted for influenza A, fatigue, dyspnea, and COPD exacerbation. Pt seen today per MST trigger. Pt discussed during AM rounds. Pt sleeping at time of visit, did not disturb and no family present at bedside. RN reports fair intake of breakfast and lunch, ~ 50% of meals. RN reports no GI distress. Unable to physically assess pt at time of visit, sleeping on side and fully covered with blankets. Chart reviewed. Will monitor and continue to follow. Ht: 68 in Wt: 115 lb BMI: 17.5 kg/m2 IBW:lb GI: LBM 10/15 Skin: no pressure ulcers Labs: (10/16) na 133, K 4.1, BUN 74, Cr 0.71, Gluc 105 Meds: pepcid, carafate, protonix, solumedrol, zocor, tricor, zofran, abx Malnutrition Evaluation (10/17/18) The patient does not meet criteria for a specified degree of malnutrition at this time. Will re-evaluate at follow-up as appropriate. Nutrition Prescription (Diet Order): Cardiac Estimated Nutritional Needs: 0186-5380 calories/day (30-35 kcal/kg CBW) 78-105 g protein/day (1.5-2 g pro/kg CBW) Diet Adequacy: Not meeting calorie needs, Not meeting protein needs Diet Education Needs Assessment: Diet education not indicated at this time. Nutrition Care Level: Low Nutrition Diagnosis: Inadequate energy and protein intake due to current medical condition as evidenced by fair po intake. Goal: Patient will meet 75-100% of estimated needs by follow up Progress: N/A Interventions: Fat, mineral modified diet, Commercial beverage Monitoring/Evaluation: Total energy intake, Total protein intake, Modified diet, Liquid supplement, Weight change Signed: Charlee Rehman RD, LD, [facility]
[2018-10-17] MEDS: HYDROCODONE/APAP 10MG-325MG TAB PO PRN (18:00)
--- NOTE | 2018-10-17 19:10 | NUR ---
Report given to oncoming nurse of patient's status. Walking rounds done. NO s/s of acute distress noted.
[2018-10-17] MEDS: NICOTINE 7 MG PATCH TOP PRN (20:44)
[2018-10-17] MEDS: SIMVASTATIN 20 MG TAB PO SCH (21:40)
[2018-10-17] MEDS: FENOFIBRATE 145 MG TAB PO SCH (21:40)
[2018-10-17] MEDS: SERTRALINE HCL 50 MG TAB PO SCH (21:40)
[2018-10-18] VITALS (7 sets, daily range): BP systolic 128–156; BP diastolic 58–69
[2018-10-18] MEDS: FAMOTIDINE 20 MG/2 ML VIAL IV SCH ×2 (02:12→13:39)
[2018-10-18] MEDS: IPRATROPIUM BROMIDE 0.02% 2.5 ML NEB NEB SCH ×6 (02:30→23:05)
[2018-10-18] MEDS: LEVALBUTEROL HCL SOLN NEBU 0.63 MG/3 ML NEB INH SCH ×6 (02:30→23:05)
[2018-10-18] MEDS: CEFEPIME 2 GM/NS 0.9% 100 ML 100 ML IV SCH ×3 (05:43→21:11)
[2018-10-18] MEDS: BUDESONIDE 0.25 MG/2 ML NEB INH SCH ×2 (07:00→19:00)
[2018-10-18] MEDS: ACETYLCYSTEINE 200 MG/ML 4ML VIAL INH SCH ×2 (07:27→19:45)
[2018-10-18] MEDS: SALMETEROL/FLUTICASONE 250/50 INH SCH ×2 (07:27→19:00)
[2018-10-18] MEDS: PANTOPRAZOLE SOD 40 MG TABEC PO SCH ×2 (08:10→21:11)
[2018-10-18] MEDS: TAMSULOSIN HCL 0.4 MG CAP PO SCH (08:10)
[2018-10-18] MEDS: HYDROCODONE/APAP 10MG-325MG TAB PO PRN ×2 (08:10→16:30)
[2018-10-18] MEDS: SUCRALFATE 1 GM TAB PO SCH ×3 (08:10→16:34)
[2018-10-18] MEDS: ASPIRIN 81 MG CHEW TAB PO SCH (08:10)
[2018-10-18] MEDS: METHYLPREDNISOLONE SOD SUCC 40 MG/ML VIAL 1ML IV SCH ×2 (08:10→21:11)
[2018-10-18] MEDS: LEVOFLOXACIN 500MG/D5W 100ML 100 ML IV SCH (08:10)
[2018-10-18] MEDS: OSELTAMIVIR PHOSPHATE 75 MG CAP PO SCH ×2 (08:10→16:34)
[2018-10-18] MEDS: HEPARIN SOD (PORCINE) 5,000 UNIT/ML VIAL SC SCH ×2 (08:11→21:05)
[2018-10-18] MEDS ORDERED: LACTULOSE SYRUP 20 GM/30 ML UDC PO PRN (09:30)
--- NOTE | 2018-10-18 10:09 | NUR ---
aware of vancomycin trough results. See orders
[2018-10-18] MEDS ORDERED: SALINE 0.65% NAS SOLN 1 SPRAY BTL PRN (11:30)
--- NOTE | 2018-10-18 12:33 | Progress Note ---
DATE: 10/18/2018 SUBJECTIVE: Mr. Menendez is a 73-year-old man with a history of end-stage COPD, hypertension, and peripheral vascular disease, came to the emergency room complaining of cough, fatigue, and shortness of breath. Came back positive for influenza. He is on Tamiflu. He was also found to have COPD exacerbation and questionable pneumonia. He is on IV antibiotics. PHYSICAL EXAMINATION: GENERAL: Today, he is awake and alert. He states he is feeling better. VITAL SIGNS: Temperature is 97 and blood pressure 128/64. HEART: Regular rate. LUNGS: Decreased breath sounds bilaterally. ABDOMEN: Soft. LABORATORY DATA: On the blood work, white count 6.49, hemoglobin 11, and hematocrit 35.6. Potassium 4.1, creatinine 0.71, and glucose is 105. Troponin has been negative. BNP 204.5. Blood culture so far negative. Urine culture negative. Sputum cultures pending. ASSESSMENT: 1. Positive influenza A. 2. Chronic obstructive pulmonary disease exacerbation. 3. Acute bronchitis versus pneumonia. 4. Hypertension. 5. Peripheral vascular disease. PLAN: My plan at present time is to continue IV antibiotics, IV steroids, DVT and ulcer prophylaxis. Continue aspirin. The patient is doing clinically better. All this was discussed with the patient. All questions were answered to satisfaction. MD DARRON Perez/GABY /[id number]
[2018-10-18] MEDS: VANCOMYCIN 1GM/NS 250 ML 250 ML IV SCH (16:34)
--- NOTE | 2018-10-18 19:12 | NUR ---
Report given to oncoming nurse of patient's status. No s/s of acute distress noted. Call light within reach.
[2018-10-18] MEDS: FENOFIBRATE 145 MG TAB PO SCH (21:11)
[2018-10-18] MEDS: SERTRALINE HCL 50 MG TAB PO SCH (21:11)
[2018-10-18] MEDS: SIMVASTATIN 20 MG TAB PO SCH (21:11)
[2018-10-18] MEDS: NICOTINE 7 MG PATCH TOP PRN (21:15)
[2018-10-19] VITALS (7 sets, daily range): BP systolic 124–177; BP diastolic 61–91
[2018-10-19] MEDS: LEVALBUTEROL HCL SOLN NEBU 0.63 MG/3 ML NEB INH SCH ×6 (00:11→19:20)
[2018-10-19] MEDS: IPRATROPIUM BROMIDE 0.02% 2.5 ML NEB NEB SCH ×6 (00:11→19:20)
[2018-10-19] MEDS: FAMOTIDINE 20 MG/2 ML VIAL IV SCH ×2 (02:19→14:54)
[2018-10-19] MEDS: VANCOMYCIN 1GM/NS 250 ML 250 ML IV SCH (05:34)
[2018-10-19 05:56] LABS: ANION GAP 10.2 mmol/L (8-16); BLOOD UREA NITROGEN 13 mg/dL (7-26); BUN/CREATININE RATIO 19 (6-25); CALCIUM 7.7 mg/dL (8.4-10.2); CARBON DIOXIDE 31 mmol/L (22-29); CHLORIDE 97 mmol/L (98-107); EST GLOMERULAR FILTRATION RATE > 60 ML/MIN (60-); GLUCOSE 120 mg/dL (74-118); POTASSIUM 4.2 mmol/L (3.5-5.1); SODIUM 134 mmol/L (136-145)
[2018-10-19 06:01] LABS: HEMATOCRIT 38.4 % (38.2-49.6); HEMOGLOBIN 11.8 g/dL (14.0-18.0); LYMPHOCYTES # (AUTO) 0.4 (1.0-3.2); LYMPHOCYTES % 8.8 % (18.0-39.1); MEAN CORPUSCULAR HEMOGLOBIN 26.1 pg (28-32); MEAN CORPUSCULAR HGB CONC 30.7 g/dL (31-35); MONOCYTES # (AUTO) 0.2 (0.2-0.8); MONOCYTES % 4.3 % (4.4-11.3); PLATELET COUNT 174 x10e3/uL (140-360); RED BLOOD COUNT 4.52 x10e6/uL (4.3-5.7); RED CELL DISTRIBUTION WIDTH 15.4 % (11.7-14.4)
[2018-10-19] MEDS: SALMETEROL/FLUTICASONE 250/50 INH SCH ×2 (07:00→19:20)
[2018-10-19] MEDS: BUDESONIDE 0.25 MG/2 ML NEB INH SCH ×2 (07:00→19:00)
[2018-10-19] MEDS: ACETYLCYSTEINE 200 MG/ML 4ML VIAL INH SCH (07:15)
[2018-10-19] MEDS: PANTOPRAZOLE SOD 40 MG TABEC PO SCH ×2 (10:28→21:35)
[2018-10-19] MEDS: TAMSULOSIN HCL 0.4 MG CAP PO SCH (10:28)
[2018-10-19] MEDS: ASPIRIN 81 MG CHEW TAB PO SCH (10:28)
[2018-10-19] MEDS: SUCRALFATE 1 GM TAB PO SCH ×3 (10:28→17:15)
[2018-10-19] MEDS: OSELTAMIVIR PHOSPHATE 75 MG CAP PO SCH ×2 (10:28→18:14)
[2018-10-19] MEDS: METHYLPREDNISOLONE SOD SUCC 40 MG/ML VIAL 1ML IV SCH ×2 (10:28→21:35)
[2018-10-19] MEDS: LEVOFLOXACIN 500MG/D5W 100ML 100 ML IV SCH (10:28)
[2018-10-19] MEDS: HEPARIN SOD (PORCINE) 5,000 UNIT/ML VIAL SC SCH ×2 (10:30→21:35)
--- NOTE | 2018-10-19 11:30 | Progress Note ---
DATE: 10/19/2018 SUBJECTIVE: Mr. Menendez is a 73-year-old man with history of end-stage COPD, hypertension, peripheral vascular disease, came to the emergency room complaining of shortness of breath, cough and phlegm. He came back positive for influenza A. he was started on Tamiflu. He also had COPD exacerbation and questionable pneumonia. He is started on IV antibiotics and neb treatments. PHYSICAL EXAMINATION: GENERAL: Today, he is awake and alert. He is feeling a little better. VITAL SIGNS: Temperature is 96.4, blood pressure 144/73. HEART: Regular rate. LUNGS: Decreased breath sounds bilaterally. ABDOMEN: Distended and soft. LABORATORY DATA: On the blood work; white count is 4.67, hemoglobin is 11.8, hematocrit 38.4. Potassium 4.2, creatinine is 0.70, glucose is 120. Troponin has been negative. BNP 204.5. Sputum culture is pending. Blood cultures have been negative. ASSESSMENT: 1. Positive influenza A. 2. Chronic obstructive pulmonary disease exacerbation. 3. Acute bronchitis. 4. Hypertension. 5. Peripheral vascular disease. PLAN: Plan at present time is to continue IV steroids, IV antibiotics. Continue neb treatments. Continue O2 nasal cannula. The patient is also on DVT and ulcer prophylaxis. Continue on aspirin. All this was discussed with the patient. All questions were answered to satisfaction. Probably, he will need a couple of more days prior to discharge. MD DARRON Perez/GABY /[id number]
--- NOTE | 2018-10-19 12:35 | Consultation ---
DATE OF CONSULTATION: 10/19/2018 REASON FOR CONSULTATION: Infectious Disease consulted for pneumonia. HISTORY OF PRESENT ILLNESS: Mr. Menendez is a 73-year-old gentleman with a complicated past medical history including end-stage COPD, pulmonary issues, who follows up with Pulmonology as an outpatient. He came in with shortness of breath, and "I could not breathe" he stated. Upon admission, labs were initiated, white counts were 6.5 on admission with a platelet of 191. Blood culture was negative. Urine culture was negative. Sputum culture, gram-positive cocci in chains and pairs. Influenza screen came back positive for influenza A. Chest x-ray was done, which showed compromised exam due to the patient's rotation and motion artifact, however, pulmonary hyperinflation suggestive of COPD with no cardiopulmonary findings. The patient is admitted and Infectious Disease consulted for possibility of pneumonia. PAST MEDICAL HISTORY: Including end-stage COPD, the patient states that he is O2 dependent at home. Tobacco abuse, depression, hyperlipidemia, chronic pain. LABORATORY STUDIES: White blood cell 4.67, hemoglobin 11.8, platelet count 174. Creatinine of 0.7, sodium 134. BNP 204.5 with an elevated CK-MB and creatine kinase. Chest x-ray, as mentioned above. ALLERGIES: ALLERGIC TO IODINE-AIDED CONTRAST IN ANY FORM, IV OR P.O. REVIEW OF SYSTEMS: Improved breathing, however, still short of breath. PHYSICAL EXAMINATION: GENERAL: Alert and oriented, in bed. VITAL SIGNS: Temperature is 96.4, pulse 91, respirations 24, blood pressure 144/73. CV: S1, S2. CHEST: Equal expansion. Decreased breath sounds. No acute distress, on O2 nasal cannula. ABDOMEN: Soft, nontender. No distention. Bowel sounds positive in four quadrants. HEENT: Moist. No pain. No JVD. EXTREMITIES: Moves all extremities, weak. No significant edema. ASSESSMENT AND PLAN: This is a 73-year-old gentleman with exacerbation of possible COPD with a clear chest x-ray with concern of COPD. Cultures negative. Vital signs seem to be stable. White count as mentioned above. We will taper the antibiotics to Levaquin and keep Tamiflu for a total of five days. We will stop cefepime, vancomycin IV. Monitor the patient throughout the hospitalization. This case was discussed with Dr. Robledo in details. Further management of this patient based on daily finding on laboratory and physical examination. Thank you very much for this consult. Dictated by Kiran Perry) NICHELLE Matta MD SHAWN Peña/GABY /[id number]
--- NOTE | 2018-10-19 16:03 | NUR ---
CM SPOKE TO PATIENT AT BEDSIDE REGARDING IMM LETTER. IMM LETTER GIVEN WITH EXPLANATION BASED ON ANTICIPATED DISCHARGE DATE. ORIGINAL SIGNED AND PLACED IN CHART; COPY OF ORIGINAL DOCUMENT GIVEN TO PATIENT AT BEDSIDE AND PLACED IN CARE TRANSITION FOLDER. CM CONTACT INFORMATION GIVEN TO PATIENT FOR ANY NEEDS OR CONCERNS. PATIENT WITH NO FURTHER QUESTIONS. PATIENT PREDOMINANTLY MACEDONIAN SPEAKING BUT UNDERSTANDS CHINESE.
[2018-10-19] MEDS: SERTRALINE HCL 50 MG TAB PO SCH (21:35)
[2018-10-19] MEDS: NICOTINE 7 MG PATCH TOP PRN (21:35)
[2018-10-19] MEDS: FENOFIBRATE 145 MG TAB PO SCH (21:35)
[2018-10-19] MEDS: SIMVASTATIN 40 MG TAB PO SCH (21:35)
--- NOTE | 2018-10-19 22:12 | NUR ---
iv to left ac discontinued, new 20G IV to right forearm started with good blood return
[2018-10-20] VITALS (7 sets, daily range): BP systolic 124–179; BP diastolic 57–98
[2018-10-20] MEDS: LEVALBUTEROL HCL SOLN NEBU 0.63 MG/3 ML NEB INH SCH ×6 (01:11→23:28)
[2018-10-20] MEDS: IPRATROPIUM BROMIDE 0.02% 2.5 ML NEB NEB SCH ×6 (01:12→23:38)
[2018-10-20] MEDS: BUDESONIDE 0.25 MG/2 ML NEB INH SCH ×2 (07:00→19:33)
--- NOTE | 2018-10-20 07:00 | NUR ---
SHIFT REPORT FROM NIGHT NURSE AT BEDSIDE. PT DENIES NEEDS AT THIS TIME.
[2018-10-20] MEDS: SALMETEROL/FLUTICASONE 250/50 INH SCH ×2 (07:36→19:33)
[2018-10-20] MEDS: LEVOFLOXACIN 500MG/D5W 100ML 100 ML IV SCH (08:25)
[2018-10-20] MEDS: FAMOTIDINE 20 MG TAB PO SCH ×2 (08:25→18:51)
[2018-10-20] MEDS: SUCRALFATE 1 GM TAB PO SCH ×3 (08:25→18:51)
[2018-10-20] MEDS: ASPIRIN 81 MG CHEW TAB PO SCH (08:26)
[2018-10-20] MEDS: TAMSULOSIN HCL 0.4 MG CAP PO SCH (08:26)
[2018-10-20] MEDS: METHYLPREDNISOLONE SOD SUCC 40 MG/ML VIAL 1ML IV SCH ×2 (08:26→21:39)
[2018-10-20] MEDS: PANTOPRAZOLE SOD 40 MG TABEC PO SCH ×2 (08:26→21:39)
[2018-10-20] MEDS: OSELTAMIVIR PHOSPHATE 75 MG CAP PO SCH (08:26)
[2018-10-20] MEDS: HEPARIN SOD (PORCINE) 5,000 UNIT/ML VIAL SC SCH ×2 (08:27→21:40)
--- NOTE | 2018-10-20 14:13 | NUR ---
PT C/O SOMETHING IN HIS LEFT EYE. THIS NURSE OFFERED TO RINSE WITH SALINE FLUSH. PT STATED NO, HE REQUESTED A PILL CUP WITH WATER. THIS NURSE INFORMED HIM THAT THE EDGES COULD SCRATCH HIS EYE. HE THEN AGREED TO THE FLUSH. AFTER 3 FLUSHES, PT ACCUSED THIS NURSE OF TRYING TO DROWNED HIM. SON THAT IS VISITING AT BEDSIDE BEGAN LAUGHING WITH PT'S COMMENT.
--- NOTE | 2018-10-20 20:41 | NUR ---
PATIENT REFUSE BED ALARM.
[2018-10-20] MEDS: SIMVASTATIN 40 MG TAB PO SCH (21:39)
[2018-10-20] MEDS: FENOFIBRATE 145 MG TAB PO SCH (21:39)
[2018-10-20] MEDS: SERTRALINE HCL 50 MG TAB PO SCH (21:39)
[2018-10-21] VITALS: BP 149/71
--- NOTE | 2018-10-21 03:29 | Discharge Summary ---
HOSPITAL COURSE: Mr. Menendez is a 73-year-old man with end-stage COPD, hypertension, peripheral vascular disease, came to the emergency room complaining of cough, shortness of breath, and phlegm. He was positive for influenza A. He already finished his 5 days of Tamiflu. He also was found to have COPD exacerbation and probably bronchitis. He was started on IV antibiotics and neb treatments as well as IV steroids. PHYSICAL EXAMINATION: GENERAL: Today, he is awake and alert. He is feeling better. VITAL SIGNS: He has oxygen at home. Temperature is 97.3, blood pressure 179/83. HEART: Regular rate. LUNGS: Decreased breath sounds bilaterally. No wheezing. ABDOMEN: Soft. LABORATORY WORK: White count 4.67, hemoglobin 11.8, and hematocrit 38.4. Potassium 4.2, creatinine is 0.70, and glucose 120. Urine did not show any white blood cells. Urine culture negative. Blood culture negative. Sputum culture is showing some Staph aureus and yeast. Chest x-ray shows the pulmonary hyperinflation suggestive of COPD. DISCHARGE DIAGNOSES: 1. Positive influenza A. 2. Chronic obstructive pulmonary disease exacerbation. 3. Acute bronchitis. 4. Hypertension. 5. Peripheral vascular disease. PLAN: At the present time is to discuss with Pulmonary and ID if the patient can go home. He is on O2 nasal cannula, he has oxygen at home. Switch him to p.o. Levaquin. Continue aspirin, inhalers, and all his home medications. All this was discussed with the patient. All questions were answered to satisfaction. Please see home medication reconciliation list. MD DARRON Perez/GABY /[id number]
[2018-10-21] MEDS: IPRATROPIUM BROMIDE 0.02% 2.5 ML NEB NEB SCH ×4 (03:30→15:17)
[2018-10-21] MEDS: LEVALBUTEROL HCL SOLN NEBU 0.63 MG/3 ML NEB INH SCH ×4 (03:30→15:17)
[2018-10-21 04:00] VITALS: BP 156/77
[2018-10-21] MEDS: SALMETEROL/FLUTICASONE 250/50 INH SCH (07:00)
--- NOTE | 2018-10-21 07:16 | NUR ---
pt alert resp even and unlabored at this time, pt sitting at bedside, no SOB indicated , no c/o pain when asked, pt able to make needs known, call light in reach.
[2018-10-21] MEDS: BUDESONIDE 0.25 MG/2 ML NEB INH SCH (07:30)
[2018-10-21 07:47] VITALS: BP 156/77
[2018-10-21 08:21] VITALS: BP 171/84
[2018-10-21] MEDS: PANTOPRAZOLE SOD 40 MG TABEC PO SCH (09:35)
[2018-10-21] MEDS: SUCRALFATE 1 GM TAB PO SCH (09:36)
[2018-10-21] MEDS: TAMSULOSIN HCL 0.4 MG CAP PO SCH (09:36)
[2018-10-21] MEDS: ASPIRIN 81 MG CHEW TAB PO SCH (09:36)
[2018-10-21] MEDS: METHYLPREDNISOLONE SOD SUCC 40 MG/ML VIAL 1ML IV SCH (09:36)
[2018-10-21] MEDS: HEPARIN SOD (PORCINE) 5,000 UNIT/ML VIAL SC SCH (09:36)
[2018-10-21] MEDS: LEVOFLOXACIN 500MG/D5W 100ML 100 ML IV SCH (09:36)
[2018-10-21] MEDS: FAMOTIDINE 20 MG TAB PO SCH (09:36)
[2018-10-21 12:07] VITALS: BP 166/101
--- NOTE | 2018-10-21 13:24 | NUR ---
CM SPOKE TO PATIENT AT BEDSIDE REGARDING HOME HEALTHCARE SERVICES AND ORDER. PATIENT GIVEN CHOICE BOTH IN AND OUT OF NETWORK. PATIENT CHOSE IN NETWORK [facility]. CLINICAL SENT TO [facility]. CHOICE LETTER PLACED IN CHART. PATIENT AWARE THAT IF THEY DO NOT FOLLOW UP WITH 48 HOURS POST DISCHARGE TO ALONSO CM. CM INFORMATION GIVEN TO PATIENT AT BEDSIDE. [facility] Address: [address], [place] [address] FAX: [phone]
--- NOTE | 2018-10-21 15:23 | NUR ---
PATIENT APPROVED AND [facility] PATIENT WITH HOME O2 SO HOME O2 EVAL IN HOUSE WAS CANCELLED. PATIENT WEANED TO BASELINE AND CLEARED FOR DISCHARGE.
[2018-10-21 16:20] VITALS: BP 153/84
--- NOTE | 2018-10-21 18:46 | NUR ---
pt family member here, pt discharge home with prescriptions and pt was educated on medications pt and family member voice understanding. iv site removed no swelling no redness to site. pt was asked to follow up with PCP and Pulmonary doctors.
--- NOTE | 2018-10-22 08:14 | Discharge Summary ---
HOSPITAL COURSE: Mr. Menendez is a 73-year-old man with end-stage COPD, hypertension, and peripheral vascular disease, came to the emergency room complaining of shortness of breath, cough, and phlegm. He was positive for influenza A. He received already his 5 days of Tamiflu. He also was found to have COPD exacerbation and bronchitis. We are going to switch him to p.o. antibiotics and p.o. steroids and discharge him home, have him follow up with Dr. Benitez and with Dr. Owens next week. PHYSICAL EXAMINATION: GENERAL: Today, he is awake and alert. He is feeling better. VITAL SIGNS: Temperature is 99.1 and blood pressure 171/84. HEART: Regular. LUNGS: Decreased breath sounds bilaterally. ABDOMEN: Soft. LABORATORY WORK: White count is 4.67, hemoglobin 11.8, and hematocrit 38.4. Potassium 4.2, creatinine is 0.70, and glucose is 120. Influenza A was positive. Chest x-ray showed COPD. DISCHARGE DIAGNOSES: 1. Positive influenza A. 2. Chronic obstructive pulmonary disease exacerbation. 3. Acute bronchitis. 4. Hypertension. 5. Peripheral vascular disease. PLAN: The plan at the present time is to discharge him home if it is okay with Pulmonary. He has oxygen at home. Continue p.o. Levaquin and steroids. Continue all home medications. All this was discussed with the patient. All questions were answered to satisfaction. Please see medication reconciliation. He needs followup in 1 week. MD DARRON Perez/GABY /[id number]
[2018-10-22] MEDS ORDERED: PREDNISONE 20 MG TAB PO SCH (09:00)
== END 2018-10-21 18:46 | disposition home or self-care (01) | DRG 193 ==
LOC: ER 10:00 → ERHOLD 14:05 → MED/SURG2 16:00
PROVIDERS: ADMIT Internal Medicine; ATTEND Internal Medicine
DX: J10.1 Influenza due to other identified influenza virus with other respiratory manifestations (principal); J96.20 Acute and chronic respiratory failure, unspecified whether with hypoxia or hypercapnia; B37.1 Pulmonary candidiasis; J44.1 Chronic obstructive pulmonary disease with (acute) exacerbation; J44.0 Chronic obstructive pulmonary disease with (acute) lower respiratory infection; J15.9 Unspecified bacterial pneumonia; I10 Essential (primary) hypertension; K21.9 Gastro-esophageal reflux disease without esophagitis; N40.0 Benign prostatic hyperplasia without lower urinary tract symptoms; J44.9 Chronic obstructive pulmonary disease, unspecified; F17.210 Nicotine dependence, cigarettes, uncomplicated; Z82.49 Family history of ischemic heart disease and other diseases of the circulatory system; E78.5 Hyperlipidemia, unspecified; G89.29 Other chronic pain; Z91.041 Radiographic dye allergy status; Z99.81 Dependence on supplemental oxygen; I73.9 Peripheral vascular disease, unspecified; Z95.820 Peripheral vascular angioplasty status with implants and grafts; R53.81 Other malaise; B95.61 Methicillin susceptible Staphylococcus aureus infection as the cause of diseases classified elsewhere
CPT/HCPCS: 36415; 71045; 80048; 80053; 80061; 80202; 81001; 82550; 82553; 83605; 83735; 83880; 84484; 85025; 85610; 85730; 87040; 87070; 87086; 87186; 87205; 87400; 93005; 93306; 94640; 94667; 94668; 97139; 99284; J1644; J1956; J2405; J2920; J2930; J3370; J7030; J7050

== ENCOUNTER 2018-10-31 17:09 | Emergency (ER) | payer MEDICARE, OTHER ==
[~2018-10-31] VITALS: Ht 172.7 cm; Wt 59.9 kg
--- OUTSIDE RECORDS SUMMARY | 2018-10-31 17:14 | XMS REPORT | Clinical Summary ---
Author Author [facility] Organization [facility] Address Unknown Phone Unavailable Care Team Providers Care Prototype Special Build Name Role Phone Asked, No Pcp PCP [...] INFLUENZA VACCINE 03/09/2018 Results Not on fileafter 10/30/2017 Insurance Payer Benefit Subscriber ID Type Phone Address Plan / Group MEDICARE MEDICARE xxxxxxxxxx Medicare [place], [place] B MEDICAID MEDICAID xxxxxxxxx Medicaid amily (Home) [place] [address] Advance Directives Patient has advance care planning documents on file. For more information, evelia eduardo contact: Alan Odell [address] [place] [address]
[2018-10-31] MEDS ORDERED: DEXAMETHASONE SOD PHOS 10 MG/1 ML VIAL IM ONE (18:30)
[2018-10-31] MEDS ORDERED: SULFACETAMIDE S15 ML OS (18:37)
[2018-10-31] MEDS ORDERED: KETOROLAC TROMETHAMINE 30 MG/ML VIAL IM PRN (18:45)
== END 2018-10-31 18:54 | disposition home or self-care (01) ==
LOC: FSED 17:09
DX: M54.5 Low back pain (principal); S39.012A Strain of muscle, fascia and tendon of lower back, initial encounter; M46.1 Sacroiliitis, not elsewhere classified; H10.022 Other mucopurulent conjunctivitis, left eye; I10 Essential (primary) hypertension; J44.9 Chronic obstructive pulmonary disease, unspecified; G89.29 Other chronic pain
CPT/HCPCS: 99283; J1100; J1885

== ENCOUNTER → 2019-06-13 | Outpatient (CLI) | payer MEDICARE, OTHER ==
[~2019-06-13] MED LIST changes: +SULFACETAMIDE S15 ML OS
--- NOTE | 2019-06-13 11:54 | Diagnostic Imaging Report ---
EXAMINATION: HAND BILATERAL 3 OR MORE VIEWS INDICATION: Bilateral hand pain COMPARISON: None FINDINGS: Right: No acute fracture or dislocation. Diffuse osteopenia. There is prominent ulnar subluxation at the first MCP joint and fourth PIP joint associated with severe degenerative change. Moderate scattered degenerative changes elsewhere. Prominent atherosclerotic vascular calcifications. Left: No acute fracture or dislocation. Mild diffuse osteopenia. Prominent ulnar subluxation at the first MCP joint associated with severe degenerative change. Moderate scattered degenerative changes elsewhere. Prominent atherosclerotic mass or calcifications. IMPRESSION: No acute osseous injury. Bilateral degenerative changes most severe at both right and left first MCP joints and the left fourth PIP joint where there is prominent ulnar subluxation. Moderate scattered degenerative changes elsewhere in both hands. Signed by: Yesenia Rajan MD on 06/13/2019 11:51 AM
== END ==
LOC: RAD 10:38
PROVIDERS: ATTEND Internal Medicine
DX: M79.642 Pain in left hand (principal); M79.641 Pain in right hand; M06.9 Rheumatoid arthritis, unspecified

== ENCOUNTER 2019-11-26 10:45 | Inpatient (IN) | payer MEDICARE, OTHER ==
[~2019-11-26] VITALS: Ht 172.7 cm; Wt 52.4 kg
[2019-11-26] MEDS ORDERED: ALBUTEROL SULF 0.083% NEB SOLN 3 ML NEB NEB NR (10:48)
[2019-11-26] MEDS ORDERED: PIPER-TAZ 3.375 GM 50 ML IV NR (11:00)
[2019-11-26] MEDS ORDERED: METHYLPREDNISOLONE SOD SUCC 125 MG/2ML VIAL IV NR (11:00)
[2019-11-26] MEDS ORDERED: ALBUTEROL SULF 0.083% NEB SOLN 3 ML NEB ONE (11:05)
[2019-11-26 11:17] LABS: BASOPHILS % 0.3 % (0.0-1.0); EOSINOPHILS % 0.5 % (0.0-6.0); HEMATOCRIT 44.1 % (38.2-49.6); HEMOGLOBIN 14.3 g/dL (14.0-18.0); LYMPHOCYTES # (AUTO) 1.2 (1.0-3.2); LYMPHOCYTES % 15.3 % (18.0-39.1); MEAN CORPUSCULAR HEMOGLOBIN 29.5 pg (28-32); MEAN CORPUSCULAR HGB CONC 32.4 g/dL (31-35); MEAN CORPUSCULAR VOLUME 90.9 fL (81-99); MONOCYTES # (AUTO) 0.5 (0.2-0.8); MONOCYTES % 6.9 % (4.4-11.3); NEUTROPHILS % 76.4 % (38.7-80.0); PLATELET COUNT 173 x10e3/uL (140-360); RED BLOOD COUNT 4.85 x10e6/uL (4.3-5.7); RED CELL DISTRIBUTION WIDTH 15.7 % (11.7-14.4)
[2019-11-26 11:37] LABS: ALANINE AMINOTRANSFERASE 13 IU/L (0-55); ALBUMIN 3.8 g/dL (3.5-5.0); ALBUMIN/GLOBULIN RATIO 1.3 (0.8-2.0); ALKALINE PHOSPHATASE 57 IU/L (40-150); ANION GAP 15.5 mmol/L (8-16); BLOOD UREA NITROGEN 13 mg/dL (7-26); BUN/CREATININE RATIO 17 (6-25); CALCIUM 9.2 mg/dL (8.4-10.2); CARBON DIOXIDE 28 mmol/L (22-29); CHLORIDE 98 mmol/L (98-107); CREATINE KINASE 36 IU/L (30-200); CREATININE, SERUM 0.77 mg/dL (0.72-1.25); EST GLOMERULAR FILTRATION RATE > 60 ML/MIN (60-); GLUCOSE 90 mg/dL (74-118); POTASSIUM 4.5 mmol/L (3.5-5.1); SODIUM 137 mmol/L (136-145)
--- NOTE | 2019-11-26 11:42 | NUR ---
Patients katerin Fernandezy [phone].
--- NOTE | 2019-11-26 11:43 | NUR ---
Unable to verify home medications. Patient states that his daughter prepares his medications for him however, does not have his daughters number to contact.
--- NOTE | 2019-11-26 11:45 | Diagnostic Imaging Report ---
EXAMINATION: CHEST SINGLE (PORTABLE) COMPARISON: Chest x-ray 10/15/2018. INDICATION: Shortness of breath. Weakness. DISCUSSION: HEART AND MEDIASTINUM: Heart and mediastinal silhouette is grossly normal calcifications of the aortic arch. LINES: None. LUNGS: The lungs are diffusely hyperinflated. Left basilar pleural-parenchymal scarring. No pneumonia or pulmonary edema. Mild bilateral perihilar, upper bronchial thickening PLEURA: No pleural effusion or pneumothorax. BONES AND SOFT TISSUES: No focal osseous lesion. IMPRESSION: COPD. No focal consolidation. Signed by: Dr. Deanne Camara M.D. on 11/26/2019 11:42 AM
--- NOTE | 2019-11-26 11:58 | NUR ---
Spoke with patients daughter but she did not have patients medication list with her. Asked her to call back with patients home medication list at her earliest convience.
[2019-11-26] MEDS: METHYLPREDNISOLONE SOD SUCC 40 MG/ML VIAL 1ML IV SCH ×3 (12:00→23:35)
[2019-11-26 14:00] VITALS: BP 133/62
--- NOTE | 2019-11-26 14:01 | NUR ---
PATIENT AAOX3. ARRIVED TO UNIT AT APPROXIMATELY 1348. ACYANOTIC. RESTING IN BED. NO DISTRESS NOTED.
[2019-11-26 15:49] VITALS: BP 112/54
--- NOTE | 2019-11-26 18:39 | NUR ---
CALLED SAL, PATIENT'S DAUGHTER, AT [phone] PROVIDED BY PATIENT TO GET LIST OF PATIENT'S MEDICINES. NO RESPONSE AT THIS TIME.
--- NOTE | 2019-11-26 18:41 | NUR ---
CALLED PATIENT'S SON, CALDERON, AT [phone] TO GET LIST OF PATIENT'S MEDICINES. NO ANSWER AT THIS TIME.
[2019-11-26] MEDS ORDERED: GABAPENTIN400 MG PO (19:18)
--- NOTE | 2019-11-26 19:20 | NUR ---
Bedside report and walking rounds completed with off going nurse. Patient in bed with call light within reach. No issues or concerns noted. Will continue to monitor.
--- NOTE | 2019-11-26 19:23 | NUR ---
REPORT RECEIVED BY ONCOMING NURSE.
[2019-11-26 20:07] VITALS: BP 146/73
[2019-11-26 20:08] LABS: CREATINE KINASE MB 3.5 ng/mL (0-5.0)
[2019-11-26 20:29] VITALS: BP 146/73
--- NOTE | 2019-11-26 20:30 | NUR ---
Called Dr Owens service to report lab alert: lactic acid 3.7 and patient meets criteria for sirs alert. Spoke with Maira. Dr Joshua Little order control clerk blood bank per answering service. Awaiting call back.
--- NOTE | 2019-11-26 21:18 | NUR ---
Called Dr Owens service to report lab alert: lactic acid 3.7 and patient meets criteria for sirs alert. Spoke with Nae. Dr Joshua Little vice president consulting services per answering service. Awaiting call back.
--- NOTE | 2019-11-26 21:51 | NUR ---
Called Dr Owens service to report lab alert: lactic acid 3.7 and patient meets criteria for sirs alert. Spoke with Rella. Dr Joshua Little convertible power shovel operator per answering service. Awaiting call back.
--- NOTE | 2019-11-26 22:17 | NUR ---
Called Dr Owens service to report lab alert: lactic acid 3.7 and patient meets criteria for sirs alert. Spoke with Rella. Called and stated that Dr Joshua Little not customer retention specialist and that Dr Avery covering. Paging Dr Avery. Awaiting call back.
--- NOTE | 2019-11-26 22:27 | NUR ---
Call back from Dr Avery. reported lactic acid 3.7 and meets criteria for SIRS alert. New orders received.
[2019-11-26] MEDS ORDERED: VANCOMYCIN 1GM/NS 250 ML 250 ML IV SCH (22:30)
[2019-11-26] MEDS ORDERED: SODIUM CHLORIDE 0.9% 1000ML 250 ML IV ONE (22:30)
[2019-11-26] MEDS: CEFEPIME 1GM/NS 0.9% 50 ML 50 ML IV SCH (23:04)
[2019-11-27] VITALS (8 sets, daily range): BP systolic 121–171; BP diastolic 64–90
[2019-11-27] MEDS: METHYLPREDNISOLONE SOD SUCC 40 MG/ML VIAL 1ML IV SCH ×3 (05:42→17:57)
[2019-11-27 06:11] LABS: CREATINE KINASE MB 3.5 ng/mL (0-5.0)
[2019-11-27 06:28] LABS: ALANINE AMINOTRANSFERASE 11 IU/L (0-55); ALBUMIN 3.6 g/dL (3.5-5.0); ALBUMIN/GLOBULIN RATIO 1.2 (0.8-2.0); ALKALINE PHOSPHATASE 57 IU/L (40-150); ANION GAP 13.8 mmol/L (8-16); BLOOD UREA NITROGEN 19 mg/dL (7-26); BUN/CREATININE RATIO 26 (6-25); CARBON DIOXIDE 27 mmol/L (22-29); CHLORIDE 101 mmol/L (98-107); CREATININE, SERUM 0.73 mg/dL (0.72-1.25); EST GLOMERULAR FILTRATION RATE > 60 ML/MIN (60-); GLUCOSE 127 mg/dL (74-118); HEMOGLOBIN 13.3 g/dL (14.0-18.0); LYMPHOCYTES # (AUTO) 0.5 (1.0-3.2); LYMPHOCYTES % 6.7 % (18.0-39.1); MEAN CORPUSCULAR HEMOGLOBIN 29.1 pg (28-32); MEAN CORPUSCULAR HGB CONC 32.4 g/dL (31-35); MEAN CORPUSCULAR VOLUME 89.7 fL (81-99); MONOCYTES # (AUTO) 0.1 (0.2-0.8); MONOCYTES % 1.2 % (4.4-11.3); NEUTROPHILS # (AUTO) 7.1 (2.1-6.9); NEUTROPHILS % 91.3 % (38.7-80.0); PLATELET COUNT 177 x10e3/uL (140-360); POTASSIUM 4.8 mmol/L (3.5-5.1); RED BLOOD COUNT 4.57 x10e6/uL (4.3-5.7); RED CELL DISTRIBUTION WIDTH 15.4 % (11.7-14.4); SODIUM 137 mmol/L (136-145)
[2019-11-27 07:08] LABS: CLARITY,URINE CLEAR (CLEAR); COLOR,URINE YELLOW (YELLOW)
[2019-11-27 07:09] LABS: BILIRUBIN,URINE NEGATIVE (NEGATIVE); KETONES,URINE NEGATIVE (NEGATIVE); LEUKOCYTE ESTERASE ,URINE NEGATIVE (NEGATIVE); NITRITE,URINE NEGATIVE (NEGATIVE); PROTEIN,URINE DIPSTICK NEGATIVE (NEGATIVE); URINE UROBILINOGEN 1 mg/dL (0.2 - 1)
[2019-11-27 07:20] LABS: BACTERIA,URINE FEW /HPF; EPITHELIAL CELLS,URINE RARE /LPF; RBC,URINE 0-5 /HPF (0-5)
--- NOTE | 2019-11-27 07:20 | NUR ---
Bedside report and walking rounds completed with oncoming nurse. Patient in bed with call light within reach. No issues or concerns noted. Will continue to monitor.
[2019-11-27 07:55] LABS: ANISOCYTOSIS SLIGHT; LYMPHOCYTES % (MANUAL) 3 % (19-48); MONOCYTES % (MANUAL) 1 % (3.4-9.0); PLATELET ESTIMATE ADEQUATE; RBC MORPHOLOGY COMMENT NORMAL
[2019-11-27 07:56] LABS: NEUTROPHILS % (MANUAL) 95 % (40-74)
--- NOTE | 2019-11-27 08:46 | Diagnostic Imaging Report ---
History: Pneumonia Comparison: 11/26/2019 Findings: The lungs are clear. The lungs appear hyperinflated suggestive of underlying chronic obstructive pulmonary disease. The normal right nipple shadow overlies the lower right lung. No pleural effusions or pneumothorax. The heart shadow is normal in size. The thoracic aorta is mildly calcified. Degenerative changes are present in the spine. Impression: No evidence of acute cardiopulmonary disease. Signed by: Angel Sullivan MD on 11/27/2019 8:42 AM
[2019-11-27] MEDS ORDERED: ALBUTEROL SULF 0.083% NEB SOLN 3 ML NEB NEB PRN (09:15)
[2019-11-27] MEDS ORDERED: IPRATROPIUM/ALBUTEROL SULFATE 4 GM INH INH PRN (09:15)
[2019-11-27] MEDS ORDERED: HYDRALAZINE HCL 10 MG TAB PO PRN (09:30)
--- NOTE | 2019-11-27 09:57 | History and Physical ---
HISTORY OF PRESENT ILLNESS: The patient is a 74-year-old male with past medical history positive for severe COPD, chronic pain syndrome, history of hypertension, also who came to the hospital complaining of shortness of breath and cough. No fever. He was diagnosed with COPD exacerbation and admitted to the hospital. REVIEW OF SYSTEMS: CARDIOVASCULAR: No chest pain or palpitation. RESPIRATORY: He did have worsening shortness of breath, but feeling better. He has some cough, but no fever. GASTROINTESTINAL: No nausea or vomiting. No diarrhea. GENITOURINARY: No frequency or dysuria. ALLERGIES: HE HAS ALLERGY TO IODINE CONTRAST. SOCIAL HISTORY: He used to smoke, he does not smoke anymore. He does not drink. PAST MEDICAL HISTORY: Hypertension, COPD, chronic bronchitis, and chronic pain syndrome. PHYSICAL EXAMINATION: HEART: Showed regular rhythm. Normal S1, S2 sound. LUNGS: Show decreased breath sounds bilaterally. Minimal rhonchi. ABDOMEN: Soft. EXTREMITIES: Show no edema. VITAL SIGNS: Blood pressure 171/79, temperature 98.1, heart rate 102 per minute, respiratory rate 24 per minute, and O2 saturation 99%. IMPRESSION: 1. Chronic obstructive pulmonary disease exacerbation. 2. Acute bronchitis. 3. Chronic pain syndrome. PLAN OF TREATMENT: Continue cefepime 1 g IV twice a day, vancomycin 1 g IV twice a day. He is taking Zosyn also 3.375 g IV, one bag was given of course. We are going to resume the rest of the home medications, which include albuterol 1 unit via nebulizer every 4-6 hours as needed for shortness of breath, Pulmicort 1 inhalation twice a day, fenofibrate 145 mg daily, gabapentin 400 mg daily, albuterol and Atrovent metered-dose inhaler every 6 hours as needed. Continue omeprazole 20 mg twice a day, continue pravastatin 40 mg daily, sertraline 50 mg daily. Carafate, he is going to discontinue. Continue sulfacetamide sodium two drops q.6 hours to each eye, Flomax 0.4 mg daily, Spiriva 1 inhalation daily. He is also taking atenolol 25 mg daily, Celebrex 200 mg daily, Claritin 10 mg daily, Opana 20 mg tablet twice a day for chronic pain. Continue incision treatments. Ramon Roman, MD LAS/GABY /[id number]
[2019-11-27] MEDS: CEFEPIME 1GM/NS 0.9% 50 ML 50 ML IV SCH ×2 (11:01→22:45)
[2019-11-27] MEDS: CELECOXIB 200 MG CAP PO SCH (11:01)
[2019-11-27] MEDS: PANTOPRAZOLE SOD 40 MG TABEC PO SCH ×2 (11:02→20:33)
[2019-11-27] MEDS: ATENOLOL 50 MG TAB PO SCH (11:02)
[2019-11-27] MEDS: LORATADINE 10 MG TAB PO SCH (11:02)
[2019-11-27] MEDS: BUDESONIDE 0.25 MG/2 ML NEB INH SCH ×2 (12:03→20:30)
[2019-11-27] MEDS: TIOTROPIUM 18 MCG INH POWDER INH SCH (12:03)
--- NOTE | 2019-11-27 13:33 | NUR ---
WOUND CARE CONSULT FOR 74 YO MALE HX OF COPD WILFRIDO 20 ON CONSERVATIVE PUP STATUS AND INTERVENTIONS AND VISCO MATTRESS LABS: WBC-7.8 HGB_13.3 GLUCOSE-127 SKIN ASSESSMENT COMPLETE PATIENT PRESENTS WITH NO NOTED WOUNDS OR OPEN AREAS BILATERAL FEET VERY DRY AND SCALY WITH LONG NAILS IN NEED OF TRIMMING FOR WHICH PATIENT STATES AWARENESS AND SET APPOINTMENT FOR TRIMMING PATIENT BILATERAL FEET CLEANED AND LOOSE DRY SKIN WIPED AWAY AND REMEDY LOTION APPLIED IS MY RECOMMENDATION FOR CONTINUED USAGE OF REMEDY LOTION FOR DRYNESS PART OF DAILY CARE OF FEET Addendum: 11/27/19 at 1340 by Rip Pearson RN Amended: Links added.
[2019-11-27] MEDS ORDERED: PANTOPRAZOLE SOD 40 MG TABEC PO SCH (17:00)
[2019-11-27] MEDS ORDERED: OXYMORPHONE HCL PO SCH (17:00)
--- NOTE | 2019-11-27 18:37 | NUR ---
patient up in bed, denies any SOB, No distress noted, call light in reach
--- NOTE | 2019-11-27 18:54 | NUR ---
Per Dr Owens, DC IV Solumedrol and continue home med Prednisone PO, ans Stop pain med oxymorphone which he is taking home, notified Pharmacy
[2019-11-27] MEDS ORDERED: SERTRALINE HCL 50 MG TAB PO SCH (21:00)
[2019-11-27] MEDS ORDERED: SIMVASTATIN 40 MG TAB PO SCH (21:00)
[2019-11-27] MEDS ORDERED: FENOFIBRATE 145 MG TAB PO SCH (21:00)
--- NOTE | 2019-11-27 21:02 | NUR ---
Spoke with Dr Owens service regarding patient requesting pain medication . Dr Owens paged. Awaiting call back.
--- NOTE | 2019-11-27 21:49 | NUR ---
Spoke with Dr Owens service ([facility]) regarding patient requesting pain medication . Dr Owens paged. Awaiting call back.
[2019-11-27] MEDS: HYDROCODONE/APAP 5MG-325MG TAB PO PRN (22:40)
[2019-11-28] VITALS: BP 152/105
[2019-11-28] MEDS: SULFACETAMIDE SODIUM OP SCH ×2 (00:14→05:09)
[2019-11-28 01:33] VITALS: BP 132/63
[2019-11-28 04:00] VITALS: BP 158/71
[2019-11-28] MEDS: HYDROCODONE/APAP 5MG-325MG TAB PO PRN (04:15)
[2019-11-28] MEDS: BUDESONIDE 0.25 MG/2 ML NEB INH SCH (06:33)
[2019-11-28] MEDS: TIOTROPIUM 18 MCG INH POWDER INH SCH (06:33)
--- NOTE | 2019-11-28 07:10 | NUR ---
Bedside report and walking rounds completed with oncoming nurse. Patient in bed with call light within reach. No issues or concerns noted.
[2019-11-28 08:00] VITALS: BP 159/115
[2019-11-28] MEDS: ATENOLOL 50 MG TAB PO SCH (08:05)
[2019-11-28 08:35] VITALS: BP 158/105
[2019-11-28] MEDS ORDERED: TAMSULOSIN HCL 0.4 MG CAP PO SCH (09:00)
[2019-11-28] MEDS ORDERED: GABAPENTIN 400 MG CAP PO SCH (09:00)
[2019-11-28] MEDS ORDERED: PREDNISONE 20 MG TAB PO SCH (09:00)
[2019-11-28] MEDS: LORATADINE 10 MG TAB PO SCH (09:07)
[2019-11-28] MEDS: PANTOPRAZOLE SOD 40 MG TABEC PO SCH (09:07)
[2019-11-28] MEDS: CELECOXIB 200 MG CAP PO SCH (09:07)
--- NOTE | 2019-11-28 09:31 | Discharge Summary ---
ADDENDUM: Due to the high blood pressure of 159/105, we are going to start him on Norvasc 5 mg daily. Temperature is 97.4. He has been afebrile at this time, heart rate is 60 per minute respiratory rate is 20 per minute, oxygen saturation 95%. Follow up with me in a week. MD MAK Marcus/GABY /[id number]
--- NOTE | 2019-11-28 09:36 | Discharge Summary ---
HOSPITAL COURSE: He is a 74-year-old male, who had a past medical history positive for severe COPD, history of chronic pain syndrome, came to the hospital complaining of shortness of breath and cough. Chest x-ray came back negative. He has no fever whatsoever. The patient was started on Solu-Medrol, IV antibiotics. He did well. He is going home today. PHYSICAL EXAMINATION: HEART: Showed regular rhythm. Normal S1 and S2 sound. LUNGS: Clear bilaterally, but significantly diminished. No rales. No rhonchi. No wheezing. No crackles. ABDOMEN: Soft. EXTREMITIES: Show no evidence of cyanosis or hematoma. FINAL IMPRESSION: 1. Chronic obstructive pulmonary disease exacerbation. 2. Chronic pain syndrome. PLAN OF TREATMENT: The patient will continue with current medication regimen. He is taking albuterol 1 unit via nebulizer every 4 hours as needed for shortness of breath, Tenormin 25 mg daily, budesonide which is Pulmicort 1 inhalation twice a day, Celebrex 200 mg daily as needed, Tricor 145 mg daily, and gabapentin 400 mg daily. He is taking [place] 5/325 mg tablet q.4 hours as needed for [id number] pain, Claritin 10 mg daily, Protonix 40 mg twice a day, prednisone 20 mg daily for 3 days and then 10 mg daily for 3 days and then discontinue. Continue Zoloft 50 mg daily and simvastatin 40 mg daily. Continue sulfacetamide sodium drops 2 drops to each eye q.6 hours, Flomax 0.4 mg daily, Spiriva 1 inhalation daily, oxymorphone which is Opana ER 1 tablet twice a day. Followup with me in a week. MD MAK Marcus/GABY /[id number]
[2019-11-28] MEDS ORDERED: AMLODIPINE BESYL5 MG PO (09:54)
[2019-11-28] MEDS ORDERED: PREDNISONE10 MG PO ×2 (09:57→09:58)
[2019-11-28] MEDS ORDERED: PREDNISONE20 MG PO ×2 (09:57)
--- NOTE | 2019-11-28 10:46 | NUR ---
Patient discharged home, Alert with no distress, prescription and discharge instruction given, IV canula removed with tip intact, no ss of infiltration noted, His son here to pick him with [facility], transported via wheelchair to [facility].
== END 2019-11-28 10:40 | disposition home or self-care (01) | DRG 202 ==
LOC: ER 10:45 → ERHOLD 11:58 → OBSVTOIN 11:58 → MED/SURG2 14:27
PROVIDERS: ADMIT Internal Medicine; ATTEND Internal Medicine
DX: J20.9 Acute bronchitis, unspecified (principal); J44.1 Chronic obstructive pulmonary disease with (acute) exacerbation; E44.1 Mild protein-calorie malnutrition; Z68.1 Body mass index [BMI] 19.9 or less, adult; J44.0 Chronic obstructive pulmonary disease with (acute) lower respiratory infection; G89.4 Chronic pain syndrome; I10 Essential (primary) hypertension; Z91.041 Radiographic dye allergy status
CPT/HCPCS: 36415; 71045; 80053; 81001; 82550; 82553; 82805; 83605; 83880; 84484; 85025; 87040; 93005; 94640; 99251; 99284; J0692; J2543; J2920; J2930; J3370; J7030; J7512

== ENCOUNTER 2022-05-17 18:08 | Inpatient (IN) | payer MEDICARE, OTHER ==
[~2022-05-17] VITALS: Ht 172.7 cm; Wt 44.0 kg
[~2022-05-17 18:08] MED LIST changes: +AMLODIPINE BESYL5 MG PO; +GABAPENTIN400 MG PO; +PREDNISONE10 MG PO; +PREDNISONE20 MG PO
[2022-05-17] MEDS ORDERED: ALBUTEROL SULF 0.083% NEB SOLN 3 ML NEB NEB STA (18:20)
[2022-05-17] MEDS ORDERED: ALBUTEROL SULF 0.083% NEB SOLN 3 ML NEB ONE (18:28)
[2022-05-17] MEDS ORDERED: IPRATROPIUM BROMIDE 0.02% 2.5 ML NEB ONE (18:28)
[2022-05-17 18:29] LABS: BASOPHILS % 0.2 % (0.0-1.0); EOSINOPHILS % 0.2 % (0.0-6.0); HEMATOCRIT 44.2 % (38.2-49.6); HEMOGLOBIN 13.7 g/dL (14.0-18.0); LYMPHOCYTES # (AUTO) 0.6 (1.0-3.2); LYMPHOCYTES % 2.8 % (18.0-39.1); MEAN CORPUSCULAR VOLUME 93.4 fL (81-99); MONOCYTES # (AUTO) 0.5 (0.2-0.8); MONOCYTES % 2.7 % (4.4-11.3); NEUTROPHILS # (AUTO) 18.5 (2.1-6.9); NEUTROPHILS % 93.8 % (38.7-80.0); PLATELET COUNT 221 x10e3/uL (140-360); RED BLOOD COUNT 4.73 x10e6/uL (4.3-5.7); RED CELL DISTRIBUTION WIDTH 14.6 % (11.7-14.4)
[2022-05-17] MEDS ORDERED: SODIUM CHLORIDE 0.9% 1000ML 1,000 ML IV ONE ×2 (18:30→18:45)
[2022-05-17] MEDS ORDERED: ACETAMINOPHEN 1000 MG/100 ML IV STA (18:39)
[2022-05-17 18:45] LABS: ALBUMIN 3.2 g/dL (3.5-5.0); ALBUMIN/GLOBULIN RATIO 0.8 (0.8-2.0); CALCIUM 8.7 mg/dL (8.4-10.2); CREATININE, SERUM 1.84 mg/dL (0.72-1.25)
[2022-05-17 18:53] LABS: CREATINE KINASE MB 7.3 ng/mL (0-5.0)
[2022-05-17 18:57] LABS: CLARITY,URINE HAZY (CLEAR); COLOR,URINE YELLOW (YELLOW)
[2022-05-17 18:58] LABS: KETONES,URINE TRACE (NEGATIVE); LEUKOCYTE ESTERASE ,URINE NEGATIVE (NEGATIVE); NITRITE,URINE NEGATIVE (NEGATIVE); PROTEIN,URINE DIPSTICK 1+ (NEGATIVE); URINE UROBILINOGEN 0.2 mg/dL (0.2 - 1)
[2022-05-17] MEDS ORDERED: IPRATROPIUM BROMIDE 0.02% 2.5 ML NEB NEB ONE (19:00)
[2022-05-17 19:02] LABS: BACTERIA,URINE FEW /HPF; EPITHELIAL CELLS,URINE FEW /LPF; TRANSITIONAL EPI CELLS,URINE MODERATE
[2022-05-17 19:04] LABS: MUCUS,URINE FEW (RARE); RBC,URINE 0-5 /HPF (0-5)
[2022-05-17 20:29] LABS: ABG PCO2 51 mmHg (35-45); ABG PH 7.24 (7.35-7.45)
[2022-05-17 20:30] LABS: ABG HCO3 22 mmol/L (22-26); ABG PO2 283 mmHg (80-105); ABG TCO2 23
[2022-05-17 22:06] LABS: BAND NEUTROPHILS % (MANUAL) 15 %; LYMPHOCYTES % (MANUAL) 5 % (19-48); MONOCYTES % (MANUAL) 1 % (3.4-9.0); NEUTROPHILS % (MANUAL) 79 % (40-74)
[2022-05-17 22:07] LABS: PLATELET ESTIMATE ADEQUATE; PLATELET MORPHOLOGY COMMENT NORMAL; RBC MORPHOLOGY COMMENT NORMAL
[2022-05-17] MEDS: ALBUTEROL/IPRATROPIUM 3 ML NEB NEB SCH (23:05)
[2022-05-18] VITALS (29 sets, daily range): BP systolic 6–143; BP diastolic 40–92
[2022-05-18] MEDS: SODIUM CHLORIDE 0.9% 1000ML 1,000 ML IV SCH ×4 (01:51→19:30)
[2022-05-18] MEDS: METHYLPREDNISOLONE SOD SUCC 40 MG/ML VIAL 1ML IV SCH ×4 (01:51→22:00)
[2022-05-18] MEDS: ALBUTEROL/IPRATROPIUM 3 ML NEB NEB SCH ×6 (02:10→23:45)
[2022-05-18 04:20] LABS: CREATINE KINASE MB 4.9 ng/mL (0-5.0)
[2022-05-18 05:33] LABS: BASOPHILS % 0.2 % (0.0-1.0); HEMATOCRIT 36.8 % (38.2-49.6); HEMOGLOBIN 11.3 g/dL (14.0-18.0); LYMPHOCYTES # (AUTO) 0.4 (1.0-3.2); LYMPHOCYTES % 5.7 % (18.0-39.1); MEAN CORPUSCULAR HGB CONC 30.7 g/dL (31-35); MEAN CORPUSCULAR VOLUME 94.4 fL (81-99); MONOCYTES # (AUTO) 0.2 (0.2-0.8); MONOCYTES % 3.4 % (4.4-11.3); NEUTROPHILS # (AUTO) 5.8 (2.1-6.9); NEUTROPHILS % 89.3 % (38.7-80.0); PLATELET COUNT 144 x10e3/uL (140-360); RED CELL DISTRIBUTION WIDTH 14.7 % (11.7-14.4)
[2022-05-18 05:46] LABS: ANION GAP 14.9 mmol/L (8-16); CALCIUM 7.8 mg/dL (8.4-10.2); CREATININE, SERUM 1.32 mg/dL (0.72-1.25); POTASSIUM 3.9 mmol/L (3.5-5.1)
[2022-05-18 07:50] LABS: CREATINE KINASE MB 3.3 ng/mL (0-5.0)
[2022-05-18 08:21] LABS: BAND NEUTROPHILS % (MANUAL) 11 %; LYMPHOCYTES % (MANUAL) 6 % (19-48); METAMYELOCYTES % (MANUAL) 5 % (0-0); MONOCYTES % (MANUAL) 1 % (3.4-9.0); MYELOCYTES % (MANUAL) 3 % (0-0); NEUTROPHILS % (MANUAL) 74 % (40-74)
[2022-05-18 08:22] LABS: HYPOCHROMASIA SLIGHT; PLATELET ESTIMATE ADEQUATE; PLATELET MORPHOLOGY COMMENT NORMAL; RBC MORPHOLOGY COMMENT NORMAL
[2022-05-18] MEDS: NICOTINE 21 MG/EA PATCH TOP SCH (08:34)
[2022-05-18] MEDS ORDERED: HYDROCODONE/APAP 5MG-325MG TAB PO PRN (09:30)
[2022-05-18] MEDS: SULFACETAMIDE SODIUM OP SCH ×2 (11:32→17:12)
[2022-05-18] MEDS ORDERED: IPRATROPIUM BROMIDE 0.02% 2.5 ML NEB NEB SCH (13:00)
[2022-05-18] MEDS ORDERED: IPRATROPIUM/ALBUTEROL SULFATE 4 GM INH INH PRN (14:00)
[2022-05-18] MEDS: PANTOPRAZOLE SOD 40 MG TABEC PO SCH (17:12)
[2022-05-18] MEDS: HYDROCODONE/APAP 5MG-325MG TAB PO PRN (17:29)
[2022-05-18] MEDS: FENOFIBRATE 145 MG TAB PO SCH (20:05)
[2022-05-18] MEDS: SERTRALINE HCL 50 MG TAB PO SCH (20:06)
[2022-05-18] MEDS: HEPARIN SOD (PORCINE) 5,000 UNIT/ML VIAL SC SCH (20:07)
[2022-05-18] MEDS: SIMVASTATIN 40 MG TAB PO SCH (20:13)
[2022-05-19] VITALS (20 sets, daily range): BP systolic 100–169; BP diastolic 52–111
[2022-05-19] MEDS: SULFACETAMIDE SODIUM OP SCH ×5 (01:01→23:41)
[2022-05-19] MEDS: HYDROCODONE/APAP 5MG-325MG TAB PO PRN (02:01)
[2022-05-19] MEDS: ALBUTEROL/IPRATROPIUM 3 ML NEB NEB SCH ×6 (03:30→22:55)
[2022-05-19 05:20] LABS: BASOPHILS % 0.2 % (0.0-1.0); HEMATOCRIT 30.9 % (38.2-49.6); HEMOGLOBIN 9.6 g/dL (14.0-18.0); LYMPHOCYTES # (AUTO) 0.2 (1.0-3.2); LYMPHOCYTES % 3.4 % (18.0-39.1); MEAN CORPUSCULAR HEMOGLOBIN 28.8 pg (28-32); MEAN CORPUSCULAR HGB CONC 31.1 g/dL (31-35); MEAN CORPUSCULAR VOLUME 92.8 fL (81-99); MONOCYTES # (AUTO) 0.2 (0.2-0.8); MONOCYTES % 3.7 % (4.4-11.3); NEUTROPHILS # (AUTO) 4.9 (2.1-6.9); NEUTROPHILS % 90.3 % (38.7-80.0); PLATELET COUNT 126 x10e3/uL (140-360); RED BLOOD COUNT 3.33 x10e6/uL (4.3-5.7); RED CELL DISTRIBUTION WIDTH 14.7 % (11.7-14.4)
[2022-05-19] MEDS: METHYLPREDNISOLONE SOD SUCC 40 MG/ML VIAL 1ML IV SCH (05:24)
[2022-05-19] MEDS: SODIUM CHLORIDE 0.9% 1000ML 1,000 ML IV SCH ×3 (05:28→21:20)
[2022-05-19 06:14] LABS: ALBUMIN 2.1 g/dL (3.5-5.0); ALBUMIN/GLOBULIN RATIO 0.7 (0.8-2.0); ANION GAP 11.5 mmol/L (8-16); CALCIUM 7.2 mg/dL (8.4-10.2); CREATININE, SERUM 0.72 mg/dL (0.72-1.25); POTASSIUM 3.5 mmol/L (3.5-5.1)
[2022-05-19] MEDS: TIOTROPIUM 18 MCG INH POWDER INH SCH (06:55)
[2022-05-19] MEDS: TAMSULOSIN HCL 0.4 MG CAP PO SCH (08:13)
[2022-05-19] MEDS: PANTOPRAZOLE SOD 40 MG TABEC PO SCH ×2 (08:13→16:27)
[2022-05-19] MEDS: HEPARIN SOD (PORCINE) 5,000 UNIT/ML VIAL SC SCH ×2 (08:14→21:21)
[2022-05-19] MEDS: NICOTINE 21 MG/EA PATCH TOP SCH (08:14)
[2022-05-19] MEDS: CELECOXIB 200 MG CAP PO SCH (08:15)
[2022-05-19 09:00] LABS: LYMPHOCYTES % (MANUAL) 3 % (19-48); MONOCYTES % (MANUAL) 2 % (3.4-9.0); NEUTROPHILS % (MANUAL) 95 % (40-74)
[2022-05-19] MEDS ORDERED: NON-FORMULARY MEDICATION (Atenolol 25 MG) PO SCH (09:00)
[2022-05-19] MEDS: ATENOLOL 50 MG TAB PO SCH (09:00)
[2022-05-19 09:01] LABS: PLATELET ESTIMATE SLIGHTLY DECREASED; PLATELET MORPHOLOGY COMMENT NORMAL; RBC MORPHOLOGY COMMENT NORMAL
[2022-05-19] MEDS ORDERED: HALOPERIDOL 5 MG TAB PO PRN (14:45)
[2022-05-19] MEDS ORDERED: NICOTINE POLACRILEX 2 MG LOZG #24 MM PRN (14:45)
[2022-05-19] MEDS: OXAZEPAM 10 MG CAP PO PRN ×2 (15:14→21:24)
[2022-05-19] MEDS ORDERED: AZITHROMYCIN 250 MG TAB PO ONE (15:30)
[2022-05-19 15:56] LABS: ABG PCO2 44 mmHg (35-45); ABG PH 7.33 (7.35-7.45)
[2022-05-19 15:57] LABS: ABG HCO3 23 mmol/L (22-26); ABG PO2 37 mmHg (80-105); ABG TCO2 24
[2022-05-19] MEDS ORDERED: METHYLPREDNISOLONE SOD SUCC 40 MG/ML VIAL 1ML IV SCH (17:00)
[2022-05-19] MEDS: SERTRALINE HCL 50 MG TAB PO SCH (21:20)
[2022-05-19] MEDS: SIMVASTATIN 40 MG TAB PO SCH (21:20)
[2022-05-19] MEDS: FENOFIBRATE 145 MG TAB PO SCH (21:20)
[2022-05-20] VITALS (18 sets, daily range): BP systolic 118–146; BP diastolic 60–80
[2022-05-20] MEDS: ALBUTEROL/IPRATROPIUM 3 ML NEB NEB SCH ×6 (00:55→19:35)
[2022-05-20 04:43] LABS: BASOPHILS % 0.2 % (0.0-1.0); HEMATOCRIT 32.5 % (38.2-49.6); LYMPHOCYTES # (AUTO) 0.3 (1.0-3.2); LYMPHOCYTES % 5.8 % (18.0-39.1); MEAN CORPUSCULAR HEMOGLOBIN 28.9 pg (28-32); MEAN CORPUSCULAR HGB CONC 30.8 g/dL (31-35); MEAN CORPUSCULAR VOLUME 93.9 fL (81-99); MONOCYTES # (AUTO) 0.2 (0.2-0.8); MONOCYTES % 5.1 % (4.4-11.3); NEUTROPHILS # (AUTO) 3.9 (2.1-6.9); NEUTROPHILS % 86.2 % (38.7-80.0); PLATELET COUNT 120 x10e3/uL (140-360); RED BLOOD COUNT 3.46 x10e6/uL (4.3-5.7); RED CELL DISTRIBUTION WIDTH 14.8 % (11.7-14.4)
[2022-05-20 04:57] LABS: ANION GAP 12.5 mmol/L (8-16); CALCIUM 7.1 mg/dL (8.4-10.2); CREATININE, SERUM 0.59 mg/dL (0.72-1.25); POTASSIUM 3.5 mmol/L (3.5-5.1)
[2022-05-20] MEDS: SULFACETAMIDE SODIUM OP SCH ×3 (05:31→17:27)
[2022-05-20] MEDS: SODIUM CHLORIDE 0.9% 1000ML 1,000 ML IV SCH ×3 (05:31→22:34)
[2022-05-20] MEDS: PANTOPRAZOLE SOD 40 MG TABEC PO SCH ×2 (07:30→08:25)
[2022-05-20] MEDS: METHYLPREDNISOLONE SOD SUCC 40 MG/ML VIAL 1ML IV SCH (08:26)
[2022-05-20] MEDS: CELECOXIB 200 MG CAP PO SCH (08:44)
[2022-05-20] MEDS: TAMSULOSIN HCL 0.4 MG CAP PO SCH (08:44)
[2022-05-20] MEDS: TIOTROPIUM 18 MCG INH POWDER INH SCH (08:44)
[2022-05-20] MEDS: ATENOLOL 50 MG TAB PO SCH (08:44)
[2022-05-20] MEDS: NICOTINE 21 MG/EA PATCH TOP SCH ×2 (08:45→12:47)
[2022-05-20] MEDS: HEPARIN SOD (PORCINE) 5,000 UNIT/ML VIAL SC SCH ×2 (08:45→21:45)
[2022-05-20] MEDS ORDERED: AZITHROMYCIN 250 MG TAB PO SCH (09:00)
[2022-05-20] MEDS: SIMVASTATIN 40 MG TAB PO SCH (21:00)
[2022-05-20] MEDS: SERTRALINE HCL 50 MG TAB PO SCH (21:00)
[2022-05-20] MEDS: FENOFIBRATE 145 MG TAB PO SCH (21:00)
[2022-05-21] VITALS (21 sets, daily range): BP systolic 125–153; BP diastolic 61–89
[2022-05-21] MEDS: ALBUTEROL/IPRATROPIUM 3 ML NEB NEB SCH ×6 (03:25→23:10)
[2022-05-21 05:22] LABS: HEMATOCRIT 29.3 % (38.2-49.6); HEMOGLOBIN 9.7 g/dL (14.0-18.0); LYMPHOCYTES # (AUTO) 0.4 (1.0-3.2); LYMPHOCYTES % 7.7 % (18.0-39.1); MEAN CORPUSCULAR HEMOGLOBIN 29.3 pg (28-32); MEAN CORPUSCULAR HGB CONC 33.1 g/dL (31-35); MEAN CORPUSCULAR VOLUME 88.5 fL (81-99); MONOCYTES # (AUTO) 0.3 (0.2-0.8); MONOCYTES % 6.6 % (4.4-11.3); NEUTROPHILS # (AUTO) 3.7 (2.1-6.9); NEUTROPHILS % 81.9 % (38.7-80.0); PLATELET COUNT 112 x10e3/uL (140-360); RED BLOOD COUNT 3.31 x10e6/uL (4.3-5.7); RED CELL DISTRIBUTION WIDTH 14.7 % (11.7-14.4)
[2022-05-21] MEDS: SULFACETAMIDE SODIUM OP SCH ×4 (06:00→17:20)
[2022-05-21 06:05] LABS: CREATININE, SERUM 0.53 mg/dL (0.72-1.25)
[2022-05-21 06:24] LABS: ANION GAP 14.8 mmol/L (8-16)
[2022-05-21 06:25] LABS: CALCIUM 6.3 mg/dL (8.4-10.2); POTASSIUM 2.8 mmol/L (3.5-5.1)
[2022-05-21] MEDS: SODIUM CHLORIDE 0.9% 1000ML 1,000 ML IV SCH ×2 (07:16→23:03)
[2022-05-21] MEDS: METHYLPREDNISOLONE SOD SUCC 40 MG/ML VIAL 1ML IV SCH (07:24)
[2022-05-21] MEDS: HEPARIN SOD (PORCINE) 5,000 UNIT/ML VIAL SC SCH ×2 (08:25→21:39)
[2022-05-21] MEDS: NICOTINE 21 MG/EA PATCH TOP SCH (08:25)
[2022-05-21] MEDS: CELECOXIB 200 MG CAP PO SCH (08:26)
[2022-05-21] MEDS: TAMSULOSIN HCL 0.4 MG CAP PO SCH (08:26)
[2022-05-21] MEDS: ATENOLOL 50 MG TAB PO SCH (08:26)
[2022-05-21] MEDS: TIOTROPIUM 18 MCG INH POWDER INH SCH (09:00)
[2022-05-21] MEDS ORDERED: POTASSIUM CHLORIDE 20MEQ/100ML 100 ML IV ONE ×2 (09:30→11:30)
[2022-05-21] MEDS ORDERED: CALCIUM GLUC 1 G/50 ML NACL 50 ML IV ONE ×2 (13:15→16:00)
[2022-05-21] MEDS: SIMVASTATIN 40 MG TAB PO SCH (21:00)
[2022-05-21] MEDS: SERTRALINE HCL 50 MG TAB PO SCH (21:00)
[2022-05-21] MEDS: FENOFIBRATE 145 MG TAB PO SCH (21:00)
[2022-05-22] VITALS (16 sets, daily range): BP systolic 116–159; BP diastolic 65–112
[2022-05-22] MEDS: SULFACETAMIDE SODIUM OP SCH ×4 (00:14→17:13)
[2022-05-22] MEDS: ALBUTEROL/IPRATROPIUM 3 ML NEB NEB SCH ×6 (03:35→22:40)
[2022-05-22 05:56] LABS: HEMATOCRIT 34.1 % (38.2-49.6); HEMOGLOBIN 10.9 g/dL (14.0-18.0); MEAN CORPUSCULAR HEMOGLOBIN 28.8 pg (28-32); MEAN CORPUSCULAR VOLUME 90.2 fL (81-99); PLATELET COUNT 110 x10e3/uL (140-360); RED BLOOD COUNT 3.78 x10e6/uL (4.3-5.7); RED CELL DISTRIBUTION WIDTH 13.6 % (11.7-14.4)
[2022-05-22 06:20] LABS: CREATININE, SERUM 0.54 mg/dL (0.72-1.25)
[2022-05-22 06:27] LABS: CALCIUM 6.6 mg/dL (8.4-10.2)
[2022-05-22] MEDS: TIOTROPIUM 18 MCG INH POWDER INH SCH (07:15)
[2022-05-22 07:55] LABS: LYMPHOCYTES % (MANUAL) 5 % (19-48); MONOCYTES % (MANUAL) 8 % (3.4-9.0); NEUTROPHILS % (MANUAL) 87 % (40-74)
[2022-05-22 07:56] LABS: PLATELET ESTIMATE SLIGHTLY DECREASED; PLATELET MORPHOLOGY COMMENT NORMAL; RBC MORPHOLOGY COMMENT NORMAL
[2022-05-22] MEDS: POTASSIUM CHLORIDE 20MEQ/100ML 100 ML IV SCH ×2 (08:06→11:31)
[2022-05-22] MEDS: TAMSULOSIN HCL 0.4 MG CAP PO SCH (08:07)
[2022-05-22] MEDS: SODIUM CHLORIDE 0.9% 1000ML 1,000 ML IV SCH (08:07)
[2022-05-22] MEDS: ATENOLOL 50 MG TAB PO SCH (08:07)
[2022-05-22] MEDS: CELECOXIB 200 MG CAP PO SCH (08:07)
[2022-05-22] MEDS: METHYLPREDNISOLONE SOD SUCC 40 MG/ML VIAL 1ML IV SCH (08:07)
[2022-05-22] MEDS: NICOTINE 21 MG/EA PATCH TOP SCH (08:11)
[2022-05-22] MEDS: HEPARIN SOD (PORCINE) 5,000 UNIT/ML VIAL SC SCH ×2 (08:12→21:06)
[2022-05-22] MEDS ORDERED: SODIUM CHLORIDE 0.9% 250ML 250 ML ONE (08:47)
[2022-05-22] MEDS ORDERED: CALCIUM GLUC 1 G/50 ML NACL 50 ML IV ONE (11:00)
[2022-05-22] MEDS ORDERED: PERIPHERAL TPN FORMULA 1 BAG IV SCH (20:00)
[2022-05-22] MEDS: SIMVASTATIN 40 MG TAB PO SCH (21:00)
[2022-05-22] MEDS: SERTRALINE HCL 50 MG TAB PO SCH (21:00)
[2022-05-22] MEDS: FENOFIBRATE 145 MG TAB PO SCH (21:00)
[2022-05-23] VITALS (22 sets, daily range): BP systolic 115–156; BP diastolic 65–95
[2022-05-23] MEDS: SULFACETAMIDE SODIUM OP SCH ×5 (00:12→23:03)
[2022-05-23] MEDS: ALBUTEROL/IPRATROPIUM 3 ML NEB NEB SCH ×6 (02:20→22:40)
[2022-05-23 05:54] LABS: HEMATOCRIT 33.9 % (38.2-49.6); MEAN CORPUSCULAR HGB CONC 32.4 g/dL (31-35); MEAN CORPUSCULAR VOLUME 89.4 fL (81-99); PLATELET COUNT 105 x10e3/uL (140-360); RED BLOOD COUNT 3.79 x10e6/uL (4.3-5.7); RED CELL DISTRIBUTION WIDTH 13.6 % (11.7-14.4)
[2022-05-23 06:14] LABS: ANION GAP 13.4 mmol/L (8-16); CREATININE, SERUM 0.57 mg/dL (0.72-1.25); POTASSIUM 3.4 mmol/L (3.5-5.1)
[2022-05-23] MEDS: TIOTROPIUM 18 MCG INH POWDER INH SCH (07:24)
[2022-05-23] MEDS: METHYLPREDNISOLONE SOD SUCC 40 MG/ML VIAL 1ML IV SCH (08:03)
[2022-05-23] MEDS: ATENOLOL 50 MG TAB PO SCH (09:00)
[2022-05-23] MEDS ORDERED: BISACODYL 10 MG SUPP PR PRN (09:00)
[2022-05-23] MEDS: CELECOXIB 200 MG CAP PO SCH (09:00)
[2022-05-23] MEDS: TAMSULOSIN HCL 0.4 MG CAP PO SCH (09:00)
[2022-05-23] MEDS ORDERED: CALCIUM GLUC 1 G/50 ML NACL 50 ML IV ONE (09:00)
[2022-05-23] MEDS: POTASSIUM CHLORIDE 10MEQ/100ML 100 ML IV SCH ×2 (09:29→10:37)
[2022-05-23] MEDS: NICOTINE 21 MG/EA PATCH TOP SCH (09:34)
[2022-05-23] MEDS: HEPARIN SOD (PORCINE) 5,000 UNIT/ML VIAL SC SCH ×2 (09:37→20:25)
[2022-05-23] MEDS: Morphine 2mg Syringe 2 MG/ML SYR IV PRN (18:16)
[2022-05-23] MEDS ORDERED: PERIPHERAL TPN FORMULA 1 BAG IV SCH (20:00)
[2022-05-23] MEDS: FENOFIBRATE 145 MG TAB PO SCH (21:00)
[2022-05-23] MEDS: SERTRALINE HCL 50 MG TAB PO SCH (21:00)
[2022-05-23] MEDS: SIMVASTATIN 40 MG TAB PO SCH (21:00)
[2022-05-24] VITALS (13 sets, daily range): BP systolic 116–145; BP diastolic 63–78
[2022-05-24] MEDS: ALBUTEROL/IPRATROPIUM 3 ML NEB NEB SCH ×6 (03:00→22:45)
[2022-05-24 05:21] LABS: BASOPHILS % 0.2 % (0.0-1.0); EOSINOPHILS % 0.2 % (0.0-6.0); HEMATOCRIT 35.5 % (38.2-49.6); HEMOGLOBIN 11.4 g/dL (14.0-18.0); LYMPHOCYTES # (AUTO) 0.8 (1.0-3.2); LYMPHOCYTES % 18.1 % (18.0-39.1); MEAN CORPUSCULAR HEMOGLOBIN 28.9 pg (28-32); MEAN CORPUSCULAR HGB CONC 32.1 g/dL (31-35); MEAN CORPUSCULAR VOLUME 89.9 fL (81-99); MONOCYTES # (AUTO) 0.6 (0.2-0.8); MONOCYTES % 12.3 % (4.4-11.3); NEUTROPHILS % 67.6 % (38.7-80.0); PLATELET COUNT 104 x10e3/uL (140-360); RED BLOOD COUNT 3.95 x10e6/uL (4.3-5.7); RED CELL DISTRIBUTION WIDTH 13.6 % (11.7-14.4)
[2022-05-24] MEDS: SULFACETAMIDE SODIUM OP SCH ×3 (05:26→18:34)
[2022-05-24 05:49] LABS: ALBUMIN 2.6 g/dL (3.5-5.0); ALBUMIN/GLOBULIN RATIO 0.9 (0.8-2.0); ANION GAP 13.9 mmol/L (8-16); CALCIUM 7.8 mg/dL (8.4-10.2); CREATININE, SERUM 0.58 mg/dL (0.72-1.25); MAGNESIUM 1.8 MG/DL (1.3-2.1); POTASSIUM 3.9 mmol/L (3.5-5.1)
[2022-05-24] MEDS: METHYLPREDNISOLONE SOD SUCC 40 MG/ML VIAL 1ML IV SCH (08:20)
[2022-05-24] MEDS: CELECOXIB 200 MG CAP PO SCH (08:21)
[2022-05-24] MEDS: TAMSULOSIN HCL 0.4 MG CAP PO SCH (08:22)
[2022-05-24] MEDS: ATENOLOL 50 MG TAB PO SCH (08:22)
[2022-05-24] MEDS: NICOTINE 21 MG/EA PATCH TOP SCH (08:24)
[2022-05-24] MEDS: HEPARIN SOD (PORCINE) 5,000 UNIT/ML VIAL SC SCH ×2 (09:59→20:33)
[2022-05-24] MEDS: TIOTROPIUM 18 MCG INH POWDER INH SCH (11:08)
[2022-05-24] MEDS: Morphine 2mg Syringe 2 MG/ML SYR IV PRN (14:40)
[2022-05-24] MEDS ORDERED: PERIPHERAL TPN FORMULA 1 BAG IV SCH (20:00)
[2022-05-24] MEDS: FENOFIBRATE 145 MG TAB PO SCH (20:30)
[2022-05-24] MEDS: SIMVASTATIN 40 MG TAB PO SCH (20:30)
[2022-05-24] MEDS: SERTRALINE HCL 50 MG TAB PO SCH (20:30)
[2022-05-25] VITALS (12 sets, daily range): BP systolic 90–142; BP diastolic 39–78
[2022-05-25] MEDS: SULFACETAMIDE SODIUM OP SCH ×4 (00:12→23:45)
[2022-05-25] MEDS: ALBUTEROL/IPRATROPIUM 3 ML NEB NEB SCH ×6 (03:20→23:45)
[2022-05-25 05:25] LABS: BASOPHILS % 0.2 % (0.0-1.0); EOSINOPHILS % 0.2 % (0.0-6.0); HEMATOCRIT 36.2 % (38.2-49.6); LYMPHOCYTES # (AUTO) 0.7 (1.0-3.2); LYMPHOCYTES % 15.9 % (18.0-39.1); MEAN CORPUSCULAR HEMOGLOBIN 28.6 pg (28-32); MEAN CORPUSCULAR HGB CONC 30.4 g/dL (31-35); MEAN CORPUSCULAR VOLUME 94.3 fL (81-99); MONOCYTES # (AUTO) 0.4 (0.2-0.8); MONOCYTES % 8.2 % (4.4-11.3); NEUTROPHILS # (AUTO) 3.5 (2.1-6.9); NEUTROPHILS % 74.6 % (38.7-80.0); PLATELET COUNT 119 x10e3/uL (140-360); RED BLOOD COUNT 3.84 x10e6/uL (4.3-5.7); RED CELL DISTRIBUTION WIDTH 14.2 % (11.7-14.4)
[2022-05-25 05:50] LABS: ALBUMIN 2.5 g/dL (3.5-5.0); ANION GAP 12.9 mmol/L (8-16); CALCIUM 7.9 mg/dL (8.4-10.2); CREATININE, SERUM 0.62 mg/dL (0.72-1.25); MAGNESIUM 2.2 MG/DL (1.3-2.1); POTASSIUM 3.9 mmol/L (3.5-5.1)
[2022-05-25] MEDS: ATENOLOL 50 MG TAB PO SCH (08:38)
[2022-05-25] MEDS: CELECOXIB 200 MG CAP PO SCH (08:38)
[2022-05-25] MEDS: TAMSULOSIN HCL 0.4 MG CAP PO SCH (08:38)
[2022-05-25] MEDS: HEPARIN SOD (PORCINE) 5,000 UNIT/ML VIAL SC SCH (08:44)
[2022-05-25 09:17] LABS: EOSINOPHILS % (MANUAL) 1 % (0-7); LYMPHOCYTES % (MANUAL) 14 % (19-48); MONOCYTES % (MANUAL) 8 % (3.4-9.0); NEUTROPHILS % (MANUAL) 76 % (40-74); PLATELET ESTIMATE SLIGHTLY DECREASED; PLATELET MORPHOLOGY COMMENT NORMAL; RBC MORPHOLOGY COMMENT NORMAL
[2022-05-25 09:53] LABS: INR 1.05; PROTHROMBIN TIME 14.6 seconds (11.9-14.5)
[2022-05-25 09:54] LABS: PARTIAL THROMBOPLASTIN TIME 35.4 seconds (23.8-35.5)
[2022-05-25] MEDS: NICOTINE 21 MG/EA PATCH TOP SCH (10:04)
[2022-05-25] MEDS: TIOTROPIUM 18 MCG INH POWDER INH SCH (11:09)
[2022-05-25] MEDS: Morphine 2mg Syringe 2 MG/ML SYR IV PRN (14:07)
[2022-05-25] MEDS: SERTRALINE HCL 50 MG TAB PO SCH (20:24)
[2022-05-25] MEDS: FENOFIBRATE 145 MG TAB PO SCH (20:24)
[2022-05-25] MEDS: SIMVASTATIN 40 MG TAB PO SCH (20:24)
[2022-05-25] MEDS ORDERED: PERIPHERAL TPN FORMULA 1 BAG IV SCH (21:00)
[2022-05-25] MEDS: OXAZEPAM 10 MG CAP PO PRN (23:49)
[2022-05-26] VITALS (16 sets, daily range): BP systolic 79–126; BP diastolic 38–64
[2022-05-26] MEDS: ALBUTEROL/IPRATROPIUM 3 ML NEB NEB SCH ×6 (02:23→23:05)
[2022-05-26] MEDS: SULFACETAMIDE SODIUM OP SCH ×4 (06:10→22:57)
[2022-05-26 06:34] LABS: HEMATOCRIT 33.6 % (38.2-49.6); HEMOGLOBIN 10.4 g/dL (14.0-18.0); MEAN CORPUSCULAR HEMOGLOBIN 28.9 pg (28-32); MEAN CORPUSCULAR VOLUME 93.3 fL (81-99); PLATELET COUNT 120 x10e3/uL (140-360); RED CELL DISTRIBUTION WIDTH 14.3 % (11.7-14.4)
[2022-05-26 06:51] LABS: ANION GAP 10.3 mmol/L (8-16); CALCIUM 7.9 mg/dL (8.4-10.2); CREATININE, SERUM 0.61 mg/dL (0.72-1.25); POTASSIUM 4.3 mmol/L (3.5-5.1)
[2022-05-26] MEDS: TIOTROPIUM 18 MCG INH POWDER INH SCH (07:00)
[2022-05-26] MEDS: TAMSULOSIN HCL 0.4 MG CAP PO SCH (09:23)
[2022-05-26] MEDS: CELECOXIB 200 MG CAP PO SCH (09:24)
[2022-05-26] MEDS: ATENOLOL 50 MG TAB PO SCH (09:28)
[2022-05-26] MEDS: NICOTINE 21 MG/EA PATCH TOP SCH (09:28)
[2022-05-26] MEDS: ACETAMINOPHEN 325 MG/10 ML UDC NG PRN ×2 (11:09→20:03)
[2022-05-26] MEDS: LIDOCAINE 4% PATCH TP SCH (11:09)
[2022-05-26] MEDS ORDERED: SODIUM CHLORIDE 0.9% 250ML 250 ML ONE (12:15)
[2022-05-26] MEDS ORDERED: PERIPHERAL TPN FORMULA 1 BAG IV SCH ×2 (18:00→20:00)
[2022-05-26] MEDS: FENOFIBRATE 145 MG TAB PO SCH (20:03)
[2022-05-26] MEDS: SERTRALINE HCL 50 MG TAB PO SCH (20:03)
[2022-05-26] MEDS: SIMVASTATIN 40 MG TAB PO SCH (20:03)
[2022-05-26] MEDS ORDERED: MELATONIN 3 MG TAB PO SCH (21:00)
[2022-05-27] VITALS (11 sets, daily range): BP systolic 104–125; BP diastolic 44–67
[2022-05-27] MEDS: ALBUTEROL/IPRATROPIUM 3 ML NEB NEB SCH ×6 (02:40→23:20)
[2022-05-27] MEDS: SULFACETAMIDE SODIUM OP SCH ×4 (05:08→23:57)
[2022-05-27 06:37] LABS: HEMATOCRIT 31.1 % (38.2-49.6); HEMOGLOBIN 9.8 g/dL (14.0-18.0); MEAN CORPUSCULAR HGB CONC 31.5 g/dL (31-35); RED BLOOD COUNT 3.38 x10e6/uL (4.3-5.7); RED CELL DISTRIBUTION WIDTH 14.2 % (11.7-14.4)
[2022-05-27 06:46] LABS: PLATELET COUNT 107 x10e3/uL (140-360)
[2022-05-27 06:54] LABS: ANION GAP 10.9 mmol/L (8-16); CALCIUM 7.5 mg/dL (8.4-10.2); CREATININE, SERUM 0.54 mg/dL (0.72-1.25); POTASSIUM 4.9 mmol/L (3.5-5.1)
[2022-05-27] MEDS: TIOTROPIUM 18 MCG INH POWDER INH SCH (07:40)
[2022-05-27 08:00] LABS: EOSINOPHILS % (MANUAL) 2 % (0-7); LYMPHOCYTES % (MANUAL) 8 % (19-48); MONOCYTES % (MANUAL) 2 % (3.4-9.0); NEUTROPHILS % (MANUAL) 88 % (40-74)
[2022-05-27 08:07] LABS: PLATELET ESTIMATE SLIGHTLY DECREASED; PLATELET MORPHOLOGY COMMENT NORMAL
[2022-05-27] MEDS: CELECOXIB 200 MG CAP PO SCH (08:52)
[2022-05-27] MEDS: TAMSULOSIN HCL 0.4 MG CAP PO SCH (08:52)
[2022-05-27] MEDS: NICOTINE 21 MG/EA PATCH TOP SCH (08:53)
[2022-05-27] MEDS: ATENOLOL 50 MG TAB PO SCH (08:53)
[2022-05-27] MEDS: LIDOCAINE 4% PATCH TP SCH (08:53)
[2022-05-27] MEDS: PERIPHERAL TPN FORMULA 1 BAG IV SCH (20:13)
[2022-05-27] MEDS: FENOFIBRATE 145 MG TAB PO SCH (20:18)
[2022-05-27] MEDS: SIMVASTATIN 40 MG TAB PO SCH (20:18)
[2022-05-27] MEDS: SERTRALINE HCL 50 MG TAB PO SCH (20:19)
[2022-05-28] VITALS (20 sets, daily range): BP systolic 82–149; BP diastolic 51–76
[2022-05-28] MEDS: ALBUTEROL/IPRATROPIUM 3 ML NEB NEB SCH ×6 (02:20→22:58)
[2022-05-28 04:50] LABS: HEMATOCRIT 34.7 % (38.2-49.6); HEMOGLOBIN 10.9 g/dL (14.0-18.0); MEAN CORPUSCULAR HEMOGLOBIN 28.9 pg (28-32); MEAN CORPUSCULAR HGB CONC 31.4 g/dL (31-35); PLATELET COUNT 118 x10e3/uL (140-360); RED BLOOD COUNT 3.77 x10e6/uL (4.3-5.7); RED CELL DISTRIBUTION WIDTH 14.5 % (11.7-14.4)
[2022-05-28 05:05] LABS: ANION GAP 12.5 mmol/L (8-16); CREATININE, SERUM 0.59 mg/dL (0.72-1.25); POTASSIUM 4.5 mmol/L (3.5-5.1)
[2022-05-28] MEDS: SULFACETAMIDE SODIUM OP SCH ×3 (06:05→18:01)
[2022-05-28] MEDS: ALBUTEROL SULF 0.083% NEB SOLN 3 ML NEB NEB PRN ×2 (07:11→11:31)
[2022-05-28 07:12] LABS: LYMPHOCYTES % (MANUAL) 8 % (19-48); MONOCYTES % (MANUAL) 6 % (3.4-9.0); NEUTROPHILS % (MANUAL) 84 % (40-74); PLATELET ESTIMATE SLIGHTLY DECREASED; RBC MORPHOLOGY COMMENT NORMAL
[2022-05-28 07:13] LABS: PLATELET MORPHOLOGY COMMENT FEW LARGE
[2022-05-28] MEDS: TIOTROPIUM 18 MCG INH POWDER INH SCH (07:20)
[2022-05-28] MEDS: ATENOLOL 50 MG TAB PO SCH (09:00)
[2022-05-28] MEDS: CELECOXIB 200 MG CAP PO SCH (09:00)
[2022-05-28] MEDS: TAMSULOSIN HCL 0.4 MG CAP PO SCH (09:00)
[2022-05-28] MEDS: NICOTINE 21 MG/EA PATCH TOP SCH (10:10)
[2022-05-28] MEDS: LIDOCAINE 4% PATCH TP SCH (10:13)
[2022-05-28] MEDS ORDERED: BUPIVACAINE HCL 0.5% 10ML MPF VIAL INJ ONE (13:42)
[2022-05-28] MEDS ORDERED: FENTANYL CITRATE/PF 100MCG/2 ML INJ ONE (17:17)
[2022-05-28] MEDS: SIMVASTATIN 40 MG TAB PO SCH (20:08)
[2022-05-28] MEDS: FENOFIBRATE 145 MG TAB PO SCH (20:08)
[2022-05-28] MEDS: PERIPHERAL TPN FORMULA 1 BAG IV SCH (20:08)
[2022-05-28] MEDS: SERTRALINE HCL 50 MG TAB PO SCH (20:08)
[2022-05-29] VITALS (16 sets, daily range): BP systolic 106–149; BP diastolic 51–80
[2022-05-29] MEDS: SULFACETAMIDE SODIUM OP SCH ×4 (00:35→17:13)
[2022-05-29] MEDS: ALBUTEROL/IPRATROPIUM 3 ML NEB NEB SCH ×6 (02:02→22:47)
[2022-05-29] MEDS: Morphine 2mg Syringe 2 MG/ML SYR IV PRN (02:04)
[2022-05-29 04:53] LABS: HEMOGLOBIN 10.7 g/dL (14.0-18.0); MEAN CORPUSCULAR HEMOGLOBIN 29.3 pg (28-32); MEAN CORPUSCULAR HGB CONC 31.5 g/dL (31-35); MEAN CORPUSCULAR VOLUME 93.2 fL (81-99); PLATELET COUNT 149 x10e3/uL (140-360); RED BLOOD COUNT 3.65 x10e6/uL (4.3-5.7); RED CELL DISTRIBUTION WIDTH 14.6 % (11.7-14.4)
[2022-05-29 05:15] LABS: ANION GAP 13.8 mmol/L (8-16); CREATININE, SERUM 0.65 mg/dL (0.72-1.25); POTASSIUM 4.8 mmol/L (3.5-5.1)
[2022-05-29 08:56] LABS: LYMPHOCYTES % (MANUAL) 3 % (19-48); MONOCYTES % (MANUAL) 1 % (3.4-9.0); MYELOCYTES % (MANUAL) 1 % (0-0); NEUTROPHILS % (MANUAL) 95 % (40-74); PLATELET ESTIMATE SLIGHTLY DECREASED; PLATELET MORPHOLOGY COMMENT NORMAL; RBC MORPHOLOGY COMMENT NORMAL
[2022-05-29] MEDS: LIDOCAINE 4% PATCH TP SCH (08:56)
[2022-05-29] MEDS: NICOTINE 21 MG/EA PATCH TOP SCH (08:58)
[2022-05-29] MEDS: ATENOLOL 50 MG TAB PO SCH (08:58)
[2022-05-29] MEDS: CELECOXIB 200 MG CAP PO SCH (08:58)
[2022-05-29] MEDS: TAMSULOSIN HCL 0.4 MG CAP PO SCH (08:59)
[2022-05-29] MEDS: TIOTROPIUM 18 MCG INH POWDER INH SCH (11:40)
[2022-05-29] MEDS ORDERED: SODIUM CHLORIDE 0.9% 250ML 250 ML ONE (12:24)
[2022-05-29] MEDS ORDERED: MELATONIN 3 MG TAB PO SCH (21:00)
[2022-05-29] MEDS: FENOFIBRATE 145 MG TAB PEG SCH (21:54)
[2022-05-29] MEDS: MELATONIN 3 MG TAB NG SCH (21:55)
[2022-05-29] MEDS: SIMVASTATIN 40 MG TAB PEG SCH (21:55)
[2022-05-29] MEDS: SERTRALINE HCL 50 MG TAB PEG SCH (21:55)
[2022-05-29] MEDS: PERIPHERAL TPN FORMULA 1 BAG IV SCH (23:11)
[2022-05-30] VITALS (17 sets, daily range): BP systolic 108–136; BP diastolic 52–76
[2022-05-30] MEDS: SULFACETAMIDE SODIUM OP SCH ×3 (00:01→18:00)
[2022-05-30] MEDS: ALBUTEROL/IPRATROPIUM 3 ML NEB NEB SCH ×6 (02:15→23:50)
[2022-05-30] MEDS: TIOTROPIUM 18 MCG INH POWDER INH SCH (08:15)
[2022-05-30] MEDS: CELECOXIB 200 MG CAP PEG SCH (08:26)
[2022-05-30] MEDS: NICOTINE 21 MG/EA PATCH TOP SCH (08:27)
[2022-05-30] MEDS: ATENOLOL 50 MG TAB PEG SCH (08:27)
[2022-05-30] MEDS: LIDOCAINE 4% PATCH TP SCH (08:28)
[2022-05-30] MEDS: TAMSULOSIN HCL 0.4 MG CAP PO SCH (08:28)
[2022-05-30 08:58] LABS: HEMATOCRIT 34.3 % (38.2-49.6); HEMOGLOBIN 11.2 g/dL (14.0-18.0); MEAN CORPUSCULAR HEMOGLOBIN 29.3 pg (28-32); MEAN CORPUSCULAR HGB CONC 32.7 g/dL (31-35); MEAN CORPUSCULAR VOLUME 89.8 fL (81-99); PLATELET COUNT 137 x10e3/uL (140-360); RED BLOOD COUNT 3.82 x10e6/uL (4.3-5.7); RED CELL DISTRIBUTION WIDTH 15.3 % (11.7-14.4)
[2022-05-30] MEDS ORDERED: TAMSULOSIN HCL 0.4 MG CAP PEG SCH (09:00)
[2022-05-30 09:45] LABS: ANION GAP 13.7 mmol/L (8-16); CALCIUM 8.1 mg/dL (8.4-10.2); CREATININE, SERUM 0.6 mg/dL (0.72-1.25); POTASSIUM 4.7 mmol/L (3.5-5.1)
[2022-05-30 10:49] LABS: LYMPHOCYTES % (MANUAL) 5 % (19-48); MONOCYTES % (MANUAL) 4 % (3.4-9.0); NEUTROPHILS % (MANUAL) 91 % (40-74)
[2022-05-30 10:50] LABS: PLATELET ESTIMATE SLIGHTLY DECREASED; PLATELET MORPHOLOGY COMMENT NORMAL; RBC MORPHOLOGY COMMENT NORMAL
[2022-05-30] MEDS: PERIPHERAL TPN FORMULA 1 BAG IV SCH (20:50)
[2022-05-30] MEDS: MELATONIN 3 MG TAB NG SCH (21:00)
[2022-05-30] MEDS: ACETAMINOPHEN 325 MG/10 ML UDC NG PRN (21:53)
[2022-05-31] VITALS (8 sets, daily range): BP systolic 112–133; BP diastolic 54–95
[2022-05-31] MEDS: OXAZEPAM 10 MG CAP PO PRN (02:20)
[2022-05-31] MEDS: ALBUTEROL/IPRATROPIUM 3 ML NEB NEB SCH ×6 (03:15→23:05)
[2022-05-31] MEDS: SULFACETAMIDE SODIUM OP SCH ×4 (05:55→18:00)
[2022-05-31] MEDS: TIOTROPIUM 18 MCG INH POWDER INH SCH (07:07)
[2022-05-31 07:10] LABS: BASOPHILS % 0.1 % (0.0-1.0); EOSINOPHILS # (AUTO) 0.1 (0.0-0.4); HEMATOCRIT 33.4 % (38.2-49.6); HEMOGLOBIN 10.6 g/dL (14.0-18.0); LYMPHOCYTES % 13.2 % (18.0-39.1); MEAN CORPUSCULAR HEMOGLOBIN 29.3 pg (28-32); MEAN CORPUSCULAR HGB CONC 31.7 g/dL (31-35); MEAN CORPUSCULAR VOLUME 92.3 fL (81-99); MONOCYTES # (AUTO) 0.8 (0.2-0.8); MONOCYTES % 10.2 % (4.4-11.3); NEUTROPHILS # (AUTO) 5.8 (2.1-6.9); PLATELET COUNT 149 x10e3/uL (140-360); RED BLOOD COUNT 3.62 x10e6/uL (4.3-5.7); RED CELL DISTRIBUTION WIDTH 14.8 % (11.7-14.4)
[2022-05-31 07:28] LABS: ALBUMIN 2.6 g/dL (3.5-5.0); ALBUMIN/GLOBULIN RATIO 0.9 (0.8-2.0); ANION GAP 10.4 mmol/L (8-16); CALCIUM 7.9 mg/dL (8.4-10.2); CREATININE, SERUM 0.61 mg/dL (0.72-1.25); MAGNESIUM 2.1 MG/DL (1.3-2.1); POTASSIUM 4.4 mmol/L (3.5-5.1)
[2022-05-31] MEDS: LIDOCAINE 4% PATCH TP SCH (07:45)
[2022-05-31] MEDS: TAMSULOSIN HCL 0.4 MG CAP PO SCH (09:58)
[2022-05-31] MEDS: ATENOLOL 50 MG TAB PEG SCH (09:58)
[2022-05-31] MEDS: NICOTINE 21 MG/EA PATCH TOP SCH (09:58)
[2022-05-31] MEDS: CELECOXIB 200 MG CAP PEG SCH (09:58)
[2022-05-31] MEDS: ACETAMINOPHEN 325 MG/10 ML UDC NG PRN (14:16)
[2022-05-31] MEDS: PERIPHERAL TPN FORMULA 1 BAG IV SCH (20:30)
[2022-05-31] MEDS: SERTRALINE HCL 50 MG TAB PEG SCH (20:31)
[2022-05-31] MEDS: FENOFIBRATE 145 MG TAB PEG SCH (20:31)
[2022-05-31] MEDS: MELATONIN 3 MG TAB NG SCH (20:31)
[2022-05-31] MEDS: SIMVASTATIN 40 MG TAB PEG SCH (20:31)
[2022-06-01] VITALS (7 sets, daily range): BP systolic 124–166; BP diastolic 51–86
[2022-06-01] MEDS: ALBUTEROL/IPRATROPIUM 3 ML NEB NEB SCH ×6 (02:30→23:15)
[2022-06-01] MEDS: SULFACETAMIDE SODIUM OP SCH ×4 (05:56→16:33)
[2022-06-01 06:04] LABS: BASOPHILS % 0.2 % (0.0-1.0); EOSINOPHILS # (AUTO) 0.1 (0.0-0.4); EOSINOPHILS % 0.8 % (0.0-6.0); HEMATOCRIT 32.5 % (38.2-49.6); HEMOGLOBIN 10.6 g/dL (14.0-18.0); LYMPHOCYTES # (AUTO) 0.6 (1.0-3.2); MEAN CORPUSCULAR HGB CONC 32.6 g/dL (31-35); MONOCYTES # (AUTO) 0.7 (0.2-0.8); MONOCYTES % 10.7 % (4.4-11.3); NEUTROPHILS # (AUTO) 5.2 (2.1-6.9); NEUTROPHILS % 78.8 % (38.7-80.0); PLATELET COUNT 147 x10e3/uL (140-360); RED BLOOD COUNT 3.65 x10e6/uL (4.3-5.7); RED CELL DISTRIBUTION WIDTH 15.7 % (11.7-14.4)
[2022-06-01 06:31] LABS: ANION GAP 13.4 mmol/L (8-16); CALCIUM 8.4 mg/dL (8.4-10.2); CREATININE, SERUM 0.68 mg/dL (0.72-1.25); MAGNESIUM 2.3 MG/DL (1.3-2.1); POTASSIUM 5.4 mmol/L (3.5-5.1)
[2022-06-01] MEDS: TIOTROPIUM 18 MCG INH POWDER INH SCH (06:50)
[2022-06-01] MEDS: TAMSULOSIN HCL 0.4 MG CAP PO SCH (09:39)
[2022-06-01] MEDS: CELECOXIB 200 MG CAP PEG SCH (09:39)
[2022-06-01] MEDS: ATENOLOL 50 MG TAB PEG SCH (09:39)
[2022-06-01] MEDS: LIDOCAINE 4% PATCH TP SCH (09:39)
[2022-06-01] MEDS: NICOTINE 21 MG/EA PATCH TOP SCH (09:39)
[2022-06-01] MEDS ORDERED: LACTULOSE SYRUP 20 GM/30 ML UDC PO ONE (10:45)
[2022-06-01] MEDS ORDERED: SOD POLYSTYRENE SULFONATE SUSP 15 GM/60 ML BTL PO ONE (10:45)
[2022-06-01] MEDS: ACETAMINOPHEN 325 MG/10 ML UDC NG PRN ×2 (12:14→20:00)
[2022-06-01] MEDS: ALBUTEROL SULF 0.083% NEB SOLN 3 ML NEB NEB PRN (14:01)
[2022-06-01] MEDS ORDERED: GLYCOPYRROLATE INJ 0.2 MG/ML VIAL IV ONE (14:10)
[2022-06-01] MEDS ORDERED: PHENYLEPHRINE HCL 1% 10 MG/ML VIAL IM ONE (14:10)
[2022-06-01] MEDS ORDERED: SUCCINYLCHOLINE CHLORIDE 20 MG/ML 10ML VIAL IV ONE (14:10)
[2022-06-01] MEDS ORDERED: PROPOFOL IV EMULSION 10 MG/ML 20 ML VIAL IV ONE (14:10)
[2022-06-01] MEDS ORDERED: DEXAMETHASONE SOD PHOS INJ 4 MG/ML SDV IV ONE (14:10)
[2022-06-01] MEDS ORDERED: SEVOFLURANE INHAL SOLN 250 ML PEN BTL INH ONE (14:10)
[2022-06-01] MEDS ORDERED: LIDOCAINE HCL 2% LOCAL INJ 5 ML SDV VIAL INJ ONE (14:10)
[2022-06-01] MEDS ORDERED: ONDANSETRON HCL INJ 2MG/ML 2ML 2 MG/ML VIAL IV ONE (14:10)
[2022-06-01] MEDS ORDERED: ACETAMINOPHEN 1000 MG/100 ML IV ONE (14:10)
[2022-06-01] MEDS ORDERED: POVIDONE IODINE 0.05% 0.05 % ML PO ONE (14:10)
[2022-06-01] MEDS: SIMVASTATIN 40 MG TAB PEG SCH (20:03)
[2022-06-01] MEDS: MELATONIN 3 MG TAB NG SCH (20:03)
[2022-06-01] MEDS: SERTRALINE HCL 50 MG TAB PEG SCH (20:03)
[2022-06-01] MEDS: FENOFIBRATE 145 MG TAB PEG SCH (20:03)
[2022-06-01] MEDS: OXAZEPAM 10 MG CAP PO PRN (21:55)
[2022-06-02] VITALS (17 sets, daily range): BP systolic 65–168; BP diastolic 13–141
[2022-06-02] MEDS: HYDROXYZINE HCL 10 MG TAB PO PRN ×2 (01:45→13:14)
[2022-06-02] MEDS: ALBUTEROL/IPRATROPIUM 3 ML NEB NEB SCH ×5 (03:20→19:40)
[2022-06-02] MEDS: SULFACETAMIDE SODIUM OP SCH ×4 (05:21→16:30)
[2022-06-02] MEDS: TIOTROPIUM 18 MCG INH POWDER INH SCH (06:21)
[2022-06-02 07:07] LABS: ANION GAP 15.4 mmol/L (8-16); CALCIUM 8.6 mg/dL (8.4-10.2); CREATININE, SERUM 0.75 mg/dL (0.72-1.25); POTASSIUM 4.4 mmol/L (3.5-5.1)
[2022-06-02] MEDS: NICOTINE 21 MG/EA PATCH TOP SCH (08:32)
[2022-06-02] MEDS: CELECOXIB 200 MG CAP PEG SCH (08:32)
[2022-06-02] MEDS: TAMSULOSIN HCL 0.4 MG CAP PO SCH (08:32)
[2022-06-02] MEDS: LIDOCAINE 4% PATCH TP SCH (08:33)
[2022-06-02] MEDS: ATENOLOL 50 MG TAB PEG SCH (08:33)
[2022-06-02 08:42] LABS: ABG HCO3 25 mmol/L (22-26); ABG PCO2 39 mmHg (35-45); ABG PH 7.42 (7.35-7.45); ABG PO2 66 mmHg (80-105); ABG TCO2 27
[2022-06-02] MEDS: ACETAMINOPHEN 325 MG/10 ML UDC NG PRN (13:13)
[2022-06-02] MEDS: METHYLPREDNISOLONE SOD SUCC 40 MG/ML VIAL 1ML IV SCH ×2 (13:21→21:55)
[2022-06-02] MEDS: ALBUTEROL SULF 0.083% NEB SOLN 3 ML NEB NEB PRN (17:00)
[2022-06-02] MEDS ORDERED: ATROPINE SULFATE 0.1 MG/ML 10ML SYR ONE (17:01)
[2022-06-02] MEDS ORDERED: EPINEPHRINE HCL SYRINGE ONE (17:01)
[2022-06-02 19:41] LABS: ABG HCO3 27 mmol/L (22-26); ABG PCO2 59 mmHg (35-45); ABG PH 7.26 (7.35-7.45); ABG PO2 32 mmHg (80-105); ABG TCO2 29
[2022-06-02] MEDS ORDERED: DEXMEDETOMIDINE 400MCG/NS100ML 100 ML IV PRN (20:45)
[2022-06-02] MEDS ORDERED: DEXMEDETOMIDINE 400MCG/NS100ML 100 ML IV ONE (20:56)
[2022-06-02] MEDS: MELATONIN 3 MG TAB NG SCH (21:00)
[2022-06-02] MEDS: SERTRALINE HCL 50 MG TAB PEG SCH (21:55)
[2022-06-02] MEDS: SIMVASTATIN 40 MG TAB PEG SCH (21:55)
[2022-06-02] MEDS: FENOFIBRATE 145 MG TAB PEG SCH (21:55)
== END 2022-06-02 23:12 | disposition expired | DRG 871 ==
LOC: ER 18:13 → ERHOLD 22:59 → ICU 05-18 02:32 → MED/SURG2 05-30 17:37 → ICU 06-02 09:36
PROVIDERS: ADMIT Internal Medicine; ATTEND Internal Medicine
PROC: 02HV33Z Insertion of Infusion Device into Superior Vena Cava, Percutaneous Approach (ICD-10-PCS; principal; 2022-05-17)
PROC: 3E04329 Introduction of Other Anti-infective into Central Vein, Percutaneous Approach (ICD-10-PCS; 2022-05-17)
PROC: 5A09357 Assistance with Respiratory Ventilation, Less than 24 Consecutive Hours, Continuous Positive Airway Pressure (ICD-10-PCS; 2022-05-17)
PROC: 3E0436Z Introduction of Nutritional Substance into Central Vein, Percutaneous Approach (ICD-10-PCS; 2022-05-22)
PROC: 0T9B70Z Drainage of Bladder with Drainage Device, Via Natural or Artificial Opening (ICD-10-PCS; 2022-05-27)
PROC: 0DH60UZ Insertion of Feeding Device into Stomach, Open Approach (ICD-10-PCS; 2022-05-28)
DX: A41.9 Sepsis, unspecified organism (principal); E43 Unspecified severe protein-calorie malnutrition; J96.21 Acute and chronic respiratory failure with hypoxia; J18.9 Pneumonia, unspecified organism; J69.0 Pneumonitis due to inhalation of food and vomit; J44.1 Chronic obstructive pulmonary disease with (acute) exacerbation; E87.20 Acidosis, unspecified; J44.0 Chronic obstructive pulmonary disease with (acute) lower respiratory infection; Z68.1 Body mass index [BMI] 19.9 or less, adult; Z99.81 Dependence on supplemental oxygen; F17.200 Nicotine dependence, unspecified, uncomplicated; F32.A Depression, unspecified; F41.9 Anxiety disorder, unspecified; G89.4 Chronic pain syndrome; M81.0 Age-related osteoporosis without current pathological fracture; Z91.041 Radiographic dye allergy status; K21.9 Gastro-esophageal reflux disease without esophagitis; I25.10 Atherosclerotic heart disease of native coronary artery without angina pectoris; Z95.5 Presence of coronary angioplasty implant and graft
CPT/HCPCS: 36415; 36569; 36600; 49441; 51700; 70450; 71045; 71250; 74176; 74230; 74470; 76604; 80048; 80053; 81001; 82378; 82550; 82553; 82805; 82948; 83605; 83735; 84132; 84134; 84484; 85007; 85025; 85027; 85610; 85730; 87040; 87070; 87205; 87400; 92950; 93005; 94640; 94660; 94664; 94667; 94668; 94669; 94799; 96361; 96366; 99251; 99285; J0171; J0330; J0456; J0694; J0696; J1100; J1644; J2001; J2270; J2370; J2405; J2920; J3010; J3410; J3480; J7030; J7050